=== PATIENT | male | born 1940 | race Caucasian/White ===

== ENCOUNTER 2021-08-16 01:25 | Outpatient (CLI) | payer MEDICARE, BC, SELFPAY ==
--- NOTE | 2021-08-16 14:55 | DI.US_ITS ---
APPROVED REPORT EXAM: Comprehensive 2D, Doppler, and color-flow Echocardiogram Patient Location: Out-Patient Electrical Engineering Intern: Pat Hernández RDCS (AE) Indications: Systolic Murmur Other Information Study Quality: Adequate Conclusion Normal left ventricular wall thickness and chamber size. Estimated ejection fraction is 60%. Wall m otion is normal Right ventricle was not well visualized Moderately dilated left atrium The aortic valve is sclerotic. Number of leaflets could not be accurately determined. There is mild aortic stenosis with a peak gradient of 24 mmHg, mean 14 mmHg and a calculated aortic valve area of 1.19 cm??. Trace aortic regurgitation Normal mitral valve with trace to mild regurgitation Normal tricuspid valve with trace regurgitation. Estimated right ventricular systolic pressure is 23 mmHg Mildly dilated ascending aorta measuring 3.55 cm Wall motion Left Ventricle The left ventricle is normal size. The left ventricular systolic function is normal. The left ventric ular ejection fraction is within the normal range. There is normal left ventricular wall thickness. T here is normal LV segmental wall motion. There is no ventricular septal defect visualized. LVEF is 60 %. Right Ventricle Right ventricle is not well visualized. Right ventricular systolic function could not be assessed. Th e RVSP is 23.5 mmHg. Atria Left atrium is moderately dilated. The right atrium size is normal. The interatrial septum is intact with no evidence for an atrial septal defect. Aortic Valve Aortic valve is calcified. Number of aortic valve leaflets could not be assessed. Peak gradient is 24 .0.mmHg. Highest mean aortic valve gradient is 14.1mmHg Calculated BECKY by the continuity equation is 1.19cm2. Trace aortic regurgitation. Mitral Valve The mitral valve is normal in structure. No evidence of mitral valve stenosis. Trace to mild mitral r egurgitation. Tricuspid Valve The tricuspid valve is normal in structure. There is no tricuspid valve stenosis. Trace tricuspid reg urgitation. Pulmonic Valve The pulmonary valve is normal in structure. There is no pulmonic valvular stenosis. Mild pulmonic reg urgitation. Great Vessels The aortic root is normal in size. The ascending aorta is mildly dilated3.55 cm. Aortic arch is not w ell visualized. IVC is normal in size and collapses >50% with inspiration. Pericardium There is no pericardial effusion. 2D Dimensions IVSD d PLAX 1.03 cm M: 0.6-1.2 LV Vol A2C d MOD 108.0 mL LVPW d PLAX 1.01 cm M: 0.6 - 1.2 LV Vol A4C d MOD 105.5 mL LVID d PLAX 4.49 cm M: 4.2 - 5.8 LA vol/ BSA A2C s A-L 47.5 mL/m2 LVDs 3.00 cm M: 2.5 - 4.0 LA vol/ BSA A4C s A-L 35.3 mL/m2 Ao Root d 3.53 cm M: 3.1 - 3.7 LA Vol/ BSA Biplane s A-L 41.3 mL/m2 Ao Asc Diam d 3.55 cm M: 2.6 - 3.4 LA Area A4C s MOD 19.97 cm2 LV EF Teichholz 60.6 % LA Area A2C s MOD 23.34 cm2 LVEF (Otoole's) 62.90 % M: 52 - 72 LV EF A4C MOD 60.6 % LV Volume 90.49 mL M: 62 - 150 LV EF A2C MOD 60.8 % LV Volume Index 54.18 mL/m2 M: 34 - 74 LV EF Biplane MOD 62.9 % LV Vol Biplane MOD 113.4 mL SV 71.31 mL FS 32.25 % SV Index 42.53 mL/m2 M-Mode TAPSE 1.86 cm (M/F) >1.7 LV Diastology MV E' medial 0.039 (>0.07 m/s) E/A Ratio 0.8 LV E/e MED 13.55 (<14) MV E Vmax 0.53 (0.4-1.3 m/s) MV E' lateral 0.064 (>0.1 m/s) MV A Vmax 0.65 (0.4-1.3 m/s) LV E/e LAT 8.35 (<14) MV E/A Ratio 0.76 MV E/E' medial 13.57 MV E/E' lateral 8.35 Aortic Valve LVOT Area 3.77 cm2 AoV Area Vmax 1.19 cm2 LVOT Vmax 0.78 m/s AoV Area/ BSA (Vmax) 0.71 cm2/m2 LVOT Mean Alfredo. 0.50 m/s BECKY Mean Alfredo. 1.06 cm2 LVOT Peak Grad 2.4 mmHg BECKY Mean Alfredo. Index 0.63 cm2/m2 LVOT Mean Grad 1.2 mmHg LVOT VTI 0.185 m LVOT Diam s 2.15 cm AoV Vmax 2.45 m/s Velocity Ratio 0.31 AoV Mean Alfredo. 1.79 m/s AoV Peak Grad 24.0 mmHg LVOT SV 69.98 mL AoV Mean Grad 14.1 mmHg AoV VTI 0.615 m AoV Area VTI 1.14 cm2 AoV Area/ BSA (VTI) 0.68 cm/m2 Mitral Valve MV DT 238 (160-240 msec) MV PHT 69 msec MV Area PHT 3.18 cm2 MV VTI 0.222 m MV Area VTI 3.15 (4.0-6.0 cm2) Pulmonary Valve PV Vmax 1.14 (0.5-1.5 m/s) RVOT Peak Gr. 1.70 mmHg PV Peak Grad 5.2 mmHg RVOT Mean Gr. 1.00 mmHg PV Mean Grad 2.9 mmHg RVOT VTI 0.155 m PV VTI 0.264 m RVOT Vmax 0.65 m/s Tricuspid Valve TR Peak Grad 20.4 mmHg TR Vmax 2.26 m/s RA Pressure 3.00 mmHg RVSP (TR) 23.5 mmHg
== END 2021-08-16 01:45 ==
PROVIDERS: PCP Nurse Practitioner Family; Visit Provider Nurse Practitioner Family
DX: R01.1 Cardiac murmur, unspecified (principal); I08.0 Rheumatic disorders of both mitral and aortic valves; I77.810 Thoracic aortic ectasia
CPT/HCPCS: 93306

== ENCOUNTER 2021-08-24 13:50 | Outpatient (CLI) | payer MEDICARE, BC, SELFPAY ==
--- NOTE | 2021-08-24 13:45 | RT.EKG_ITS ---
APPROVED REPORT Exam: Resting ECG Reason for Exam: New Patient [facility] Patient Location: O HR:60 bpm ECG Measurements Heart Rate 60 AXIS UT 304 P 89 QRSd 94 QRS 31 QT 417 T 64 QTc 417 Conclusion Sinus rhythm...normal P axis, V-rate 50- 99 Prolonged UT interval...UT >220, V-rate 50- 90 Left atrial enlargement...P, P'>60mS, <-0.15mV V1 left ventricular hypertrophy...multiple LVH criteria
== END 2021-08-24 13:51 | disposition home or self-care (01) ==
LOC: DI.CARD 13:53
PROVIDERS: PCP Nurse Practitioner Family; Referring Provider Nurse Practitioner Family; Visit Provider Internal Medicine Cardiovascular Disease
DX: R01.1 Cardiac murmur, unspecified (principal)
CPT/HCPCS: 93010

== ENCOUNTER → 2021-08-24 13:50 | Outpatient (BNVA) | payer MEDICARE, BC, SELFPAY | PROVIDERS: PCP Nurse Practitioner Family; Referring Provider Nurse Practitioner Family; Visit Provider Internal Medicine Cardiovascular Disease | DX: I35.0 Nonrheumatic aortic (valve) stenosis (principal); G20 Parkinson's disease; R01.1 Cardiac murmur, unspecified | CPT/HCPCS: 93005; 99203 ==

== ENCOUNTER 2021-09-05 00:13 | Outpatient (CLI) | payer MEDICARE, BC, SELFPAY ==
--- NOTE | 2021-09-05 17:00 | DI.DEXA_ITS ---
Exam(s) XR DEXA BONE DENSITY W/WO KENIA EXAM: XR DEXA BONE DENSITY W/WO KENIA CLINICAL HISTORY: OSTEOPOROSIS M81.0 TECHNIQUE: Routine DEXA evaluation of the lumbar spine, hip, or forearm. COMPARISON: No exams were available for comparison FINDINGS: Performed on a Hologic unit. Lateral image: L3 compression fracture noted. Lumbar Spine total T-score: Not able to be scanned Hip total T-score:-1.3 Independent reading at the level of the femoral neck yields at T-score of -2.1. Forearm total T-score: -0.7 IMPRESSION: Bone mineral density measures in the osteopenia range. Fracture risk is moderate. Note: Any spine fracture indicates 5x risk for subsequent spine fracture and 2x risk for subsequent h ip fracture. World Health Organization criteria for BMD interpretation classify patients: Normal...... T- Score at or above -1.0 Osteopenic... T- Score between -1.0 and -2.5 Osteoporosis... T-Score at or below -2.5
== END 2021-09-05 00:33 ==
PROVIDERS: PCP Nurse Practitioner Family; Visit Provider Nurse Practitioner Family
DX: Z13.820 Encounter for screening for osteoporosis (principal); M85.89 Other specified disorders of bone density and structure, multiple sites
CPT/HCPCS: 77080

== ENCOUNTER 2021-09-10 15:15 | Outpatient (CLI) | payer MEDICARE, BC, SELFPAY ==
--- NOTE | 2021-09-10 15:00 | DI.RAD_ITS ---
Exam(s) XR KNEE RT 3V AP,LAT,HARPREET EXAM: XR KNEE RT 3V AP,LAT,HARPREET INDICATION: R TKA pain. COMPARISON: No exams were available for comparison TECHNIQUE: 2D digital imaging was performed. FINDINGS: There has been no change in the alignment of the total knee prosthesis or appearance of the surroundi ng bone. Vascular calcifications are noted. A joint effusion appears unchanged. DATA REPOSITORY: RADIATION DOSE DELIVERED:
--- NOTE | 2021-09-10 15:15 | DI.RAD_ITS ---
Exam(s) XR HIP RT COMPLETE AP PELVIS EXAM: XR HIP RT COMPLETE AP PELVIS INDICATION: hip/knee pain. COMPARISON: CR XR DEXA BONE DENSITY W/WO KENIA from 09/05/2021 TECHNIQUE: 2D digital imaging was performed. FINDINGS: Hip joint spaces are well maintained. Minimal acetabular spurring. Vascular calcifications. Mild d egenerative changes of the SI joints. DATA REPOSITORY: RADIATION DOSE DELIVERED:
[2021-09-10 17:33] LABS: Clarity Cloudy; Nucleated Cells 5558 uL (0)
[2021-09-10 17:34] LABS: Mononuclear Cells 32 %; Polynuclear Cells 68 %
== END 2021-09-10 15:16 | disposition home or self-care (01) ==
PROVIDERS: PCP Nurse Practitioner Family; Referring Provider Nurse Practitioner Family; Visit Provider Student in an Organized Health Care Education/Training Program
DX: T84.84XA Pain due to internal orthopedic prosthetic devices, implants and grafts, initial encounter; Z96.651 Presence of right artificial knee joint; M25.561 Pain in right knee; M25.551 Pain in right hip; G20 Parkinson's disease
CPT/HCPCS: 20610; 73562; 99213; 73502; 87070; 87205; 89051

== ENCOUNTER → 2021-09-17 14:48 | Outpatient (BNVA) | payer MEDICARE, BC, SELFPAY | PROVIDERS: PCP Nurse Practitioner Family; Referring Provider Nurse Practitioner Family; Visit Provider Surgery | DX: K40.30 Unilateral inguinal hernia, with obstruction, without gangrene, not specified as recurrent (principal); G20 Parkinson's disease; I10 Essential (primary) hypertension | CPT/HCPCS: 36415; 99214; 99243 ==

== ENCOUNTER 2021-09-17 16:05 | Outpatient (REF) | payer MEDICARE, BC, SELFPAY ==
[2021-09-17 15:43] LABS: Source Nasal/Nares
[2021-09-17 16:03] LABS: Abs Immature Grans 0.01 10^3/uL (0.0-0.06); Absolute Basophil Count 0.05 10^3/uL (0.0-0.2); Absolute Eosinophil Count 0.08 10^3/uL (0.0-0.7); Absolute Lymphocyte Count 6.69 10^3/uL (1.2-3.4); Absolute Monocyte Count 0.54 10^3/uL (0.1-0.8); Absolute Neutrophil Count 3.62 10^3/uL (1.2-6.7); Basophils % 0.5; Eosinophils % 0.7; HCT 39.1 % (40.0-50.0); HGB 12.4 g/dL (13.5-17.5); Immature Grans % 0.1; Lymphocytes % 60.9; MCH 29.7 pg (27.0-33.0); MCHC 31.7 % (32.0-36.0); MCV 93.8 fL (80-95); MPV 9.8 fL (8.0-11.0); Monocytes % 4.9; Neutrophils % 32.9; Nucleated RBC 0 %; Platelet Count 230 10^3/uL (130-400); RBC 4.17 10^6/uL (4.36-5.78); RDW 13.9 % (11.8-14.1); RDW-SD 47.5 fL; WBC 10.99 10^3/uL (4.4-10.8)
[2021-09-17 16:25] LABS: Diff Comment Agrees w/ Instrument; RBC Morphology Normal
[2021-09-17 16:30] LABS: ALT 18 U/L (16-63); AST 16 U/L (15-37); Albumin 3.5 g/dL (3.4-5.0); Alkaline Phosphatase 99 U/L (46-116); Anion Gap 4.8 mmol/L (3-11); BUN 25 mg/dL (7-18); Bilirubin, Total 0.8 mg/dL (0.2-1.0); CO2 32.2 mmol/L (21.0-32.0); CREATININE 0.9 mg/dL (0.70-1.30); Calcium 8.7 mg/dL (8.5-10.1); Chloride 104 mmol/L (98-107); Glucose 88 mg/dL (74-106); Potassium 4.5 mmol/L (3.5-5.1); Sodium 141 mmol/L (136-145); Total Protein 7.1 g/dL (6.4-8.2)
[2021-09-18 08:27] LABS: COVID-19 PCR Negative (Negative)
== END 2021-09-17 16:06 | disposition home or self-care (01) ==
LOC: LBN 16:05
PROVIDERS: PCP Nurse Practitioner Family; Visit Provider Surgery
DX: Z20.822 Contact with and (suspected) exposure to COVID-19; K40.90 Unilateral inguinal hernia, without obstruction or gangrene, not specified as recurrent; G20 Parkinson's disease; I35.0 Nonrheumatic aortic (valve) stenosis; M81.0 Age-related osteoporosis without current pathological fracture; T84.84XA Pain due to internal orthopedic prosthetic devices, implants and grafts, initial encounter
CPT/HCPCS: 80053; 87635; 85025

== ENCOUNTER 2021-09-18 06:44 | Observation (INO) | payer MEDICARE, BC, SELFPAY ==
[2021-09-18] VITALS (18 sets, daily range): BP systolic 60–117; BP diastolic 32–75; PULSE 54–88; RESP 10–21; TEMP 36–36.9; O2SAT 93–98; BMI 25.6
--- NOTE | 2021-09-18 07:58 | W.ANESPRE ---
General Info Date of Service Date Performed: 09/18/21 Height: 5 ft 5 in Weight: 69.8 kg Body Mass Index (BMI): 25.6 Surgical Procedure: Operation Date: 09/18/21 08:25 Proposed Procedures Side Surgeon p Herniorrhaphy Inguinal Incarcerated Lizette Humphreys, Meds Allergies and Home Medications Allergies Allergy/AdvReac Type Severity Reaction Status Date / Time No Known Allergies Allergy Verified 09/18/21 07:30 Home Medication Medication Instructions Recorded alendronate 70 mg tablet 70 mg PO QWEEK 07/06/21 aspirin 81 mg tablet,delayed 81 mg PO DAILY 07/06/21 release calcium citrate malate 250 1 tab PO DAILY tab 07/06/21 mg-vitamin D3 2.5 mcg (100 unit) tablet carbidopa 25 mg-levodopa 100 mg 1 tab PO TID 07/06/21 tablet multivitamin 1 tab PO DAILY 07/06/21 ramipril 2.5 mg capsule 2.5 mg PO DAILY 07/06/21 simvastatin 20 mg tablet 20 mg PO DAILY 07/06/21 Current Visit Medications: Current Medications Generic Name Dose Route Start Last Admin Trade Name Freq PRN Reason Stop Dose Admin Acetaminophen 1,000 mg 09/18/21 19:56 Acetaminophen 500 Mg Tab PO 09/18/21 19:57 SUBSTITUTE NURSE ONE Gabapentin 300 mg 09/18/21 07:00 Gabapentin 300 Mg Cap PO SUBSTITUTE NURSE [place] Sodium Chloride 500 mls @ 0 mls/hr 09/17/21 21:54 Saline 500ml Bag IV PRN PRN As Directed Piperacillin Sod/Tazobactam 50 mls @ 100 mls/hr 09/18/21 07:54 Sod 3.375 gm/ Sodium Chloride IVPB 09/18/21 08:23 SUBSTITUTE NURSE ONE Protocol Ringer's Solution 1,000 mls @ 80 mls/hr 09/17/21 22:00 IV INFUSION [place] Ondansetron HCl 4 mg/ Sodium 52 mls @ 200 mls/hr 09/17/21 21:59 Chloride IVPB Q6H PRN PRN IV Miscellaneous Supplies 1 each 09/17/21 22:00 Iv Access IV DIRECTED [place] Morphine Sulfate 2 mg 09/17/21 21:59 Morphine 4 Mg/Ml Syr IVP Q1H PRN PRN Sodium Chloride 0 ml 09/17/21 21:54 Normal Saline Flush 10 Ml Syr IVP PRN PRN PFSH Active Problems Active Problems: Problem Status Onset Code Knee pain, right M25.561 Dementia F03.90 Cough R05 Systolic murmur R01.1 Osteoporosis M81.0 Parkinsons disease G20 Inguinal hernia K40.90 Right inguinal hernia K40.90 Aortic stenosis I35.0 Painful total knee replacement, 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, Z96.651 Incarcerated right inguinal hernia K40.30 BPH (benign prostatic hyperplasia) N40.0 HTN (hypertension) I10 Elevated cholesterol E78.00 Medical History Active Problem List Knee pain, right (Acute) Dementia (Chronic) Cough (Acute) Systolic murmur (Acute) Osteoporosis (Chronic) Parkinsons disease (Chronic) Inguinal hernia (Acute) Right inguinal hernia (Acute) Aortic stenosis (Chronic) Painful total knee replacement, right (Acute) Incarcerated right inguinal hernia (Acute) BPH (benign prostatic hyperplasia) (Chronic) HTN (hypertension) (Chronic) Elevated cholesterol (Chronic) Surgical History Surgical History History of lumbar laminectomy multiple History of total right knee replacement (TKR) (~2019) Hx of hand surgery left Tobacco Smoking/Tobacco Use Status: Never Vital Signs and Lab Results Vital Signs Most Recent Vital Signs in EMR: Temp Pulse Resp BP Pulse Ox 36.9 C 70 16 117/70 95 09/18/21 07:35 09/18/21 07:35 09/18/21 07:35 09/18/21 07:35 09/18/21 07:35 Lab Results Blood Type / Crossmatch: No Data to Display Complete Blood Count: White Blood Count 10.99 10^3/uL (4.4-10.8) H 09/17/21 15:45 09/17/21 Red Blood Count 4.17 10^6/uL (4.36-5.78) L 09/17/21 15:45 09/17/21 Hemoglobin 12.4 g/dL (13.5-17.5) L 09/17/21 15:45 09/17/21 Hematocrit 39.1 % (40.0-50.0) L 09/17/21 15:45 09/17/21 Platelet Count 230 10^3/uL (130-400) 09/17/21 15:45 09/17/21 Complete Metabolic Panel: Sodium Level 141 mmol/L (136-145) 09/17/21 15:45 09/17/21 Potassium Level 4.5 mmol/L (3.5-5.1) 09/17/21 15:45 09/17/21 Chloride Level 104 mmol/L (98-107) 09/17/21 15:45 09/17/21 Carbon Dioxide Level 32.2 mmol/L (21.0-32.0) H 09/17/21 15:45 09/17/21 Blood Urea Nitrogen 25 mg/dL (7-18) H 09/17/21 15:45 09/17/21 Creatinine 0.9 mg/dL (0.70-1.30) 09/17/21 15:45 09/17/21 Estimated GFR/1.73 m2 >= 60.00 (mL/min/1.73m2) 09/17/21 15:45 09/17/21 Calcium Level 8.7 mg/dL (8.5-10.1) 09/17/21 15:45 09/17/21 Albumin 3.5 g/dL (3.4-5.0) 09/17/21 15:45 09/17/21 Glucose Level 88 mg/dL (74-106) 09/17/21 15:45 09/17/21 Liver Function Panel: Alanine Aminotransferase (ALT/SGPT) 18 U/L (16-63) 09/17/21 15:45 09/17/21 Aspartate Amino Transf (AST/SGOT) 16 U/L (15-37) 09/17/21 15:45 09/17/21 Coagulation Panel: No Data to Display Cardiac Panel: No Data to Display Arterial Blood Gas: No Data to Display Venous Blood Gas: No Data to Display Pancreas Panel: No Data to Display Thyroid Panel: No Data to Display Infectious Disease: Coronavirus (COVID-19)(PCR) Negative (Negative) 09/17/21 15:30 09/17/21 Coronavirus 2019 Source Nasal/Nares 09/17/21 15:30 09/17/21 Blood Cultures: No Data to Display Toxicology Panel: No Data to Display Imaging and Studies Imaging and Studies EKG Summary: 08/24/21: Conclusion Sinus rhythm...normal P axis, V-rate 50- 99 Prolonged IL interval...IL >220, V-rate 50- 90 Left atrial enlargement...P, P'>60mS, <-0.15mV V1 left ventricular hypertrophy...multiple LVH criteria Echocardiogram Summary: 08/16/21: Conclusion Normal left ventricular wall thickness and chamber size. Estimated ejection fraction is 60%. Wall motion is normal Right ventricle was not well visualized Moderately dilated left atrium The aortic valve is sclerotic. Number of leaflets could not be accurately determined. There is mild aortic stenosis with a peak gradient of 24 mmHg, mean 14 mmHg and a calculated aortic valve area of 1.19 cm??. Trace aortic regurgitation Normal mitral valve with trace to mild regurgitation Normal tricuspid valve with trace regurgitation. Estimated right ventricular systolic pressure is 23 mmHg Mildly dilated ascending aorta measuring 3.55 cm Anesthesia Assessment and Plan Anesthesia History Personal History: Delayed Emergence Family History: No Family History of Anesthesia Complications Exercise Tolerance Exercise Tolerance: Metabolic Equivalents>4 Pertinent Negatives Pertinent Negatives: No Symptoms of GERD, No Major Pulmonary Symptoms or Complaints and No History of CVA/TIA Cardiac & Pulmonary Exam Cardiac Exam: Normal S1/S2 Heart Sounds and Heart Murmur Present (Systolic) Pulmonary Exam: Clear Bilateral Breath Sounds Implantable Cardiac Device Does patient have a Pacemaker or an ICD?: No Airway Exam Known Difficult Airway: No Mallampati Class: 2 Mouth Opening: Normal (> 3cm) Thyromental Distance: Greater than 3 cm Neck Range of Motion: Full ROM Neck Circumference: Normal Teeth Condition: Removable Dentures/Plates Upper ASA Classification ASA Score: ASA 3 Emergency Case?: No NPO Status NPO Status: NPO Clears >2 hours, Solids >8 hours Anesthesia Plan Resuscitation Status: Full Code Anesthesia Technique: General Anesthesia Airway Planned: Endotracheal Tube Pain Management: Surgeon and patient request nerve block Monitors Used: Standard Monitors, Arterial Line and SedLine
[2021-09-18] MEDS: Acetaminophen 500 MG TAB 1000 MG PO ×2 (08:32→17:00)
[2021-09-18] MEDS: Tamsulosin 0.4 MG CAPCR PO (08:34)
[2021-09-18] MEDS: Lactated Ringers 1,000 ML 80 ML IV (08:34)
[2021-09-18] MEDS: Gabapentin 300 MG CAP PO (08:34)
--- NOTE | 2021-09-18 13:16 | LYM_PTH ---
PATIENT: Noam Whyte LOC: [place] Raza#:[id number] AGE/SX: 80/M ROOM: 212 RE09/18/[address]: Lizette Humphreys : 1940 BED: A DIS: 09/19/2021 SPEC #: [id number] RECD: 09/18/21 17:29 STATUS: MAKSIM REQ #: [id number] ASHUTOSH: 09/18/21 13:[address]: Lizette Humphreys DEPT: Surgical Specimen RECD BY: Beverley Naranjo ENTERED: 09/18/21 17:30 SP TYPE: LYM OTHR DR: Clemencia Hoover Tissues: 1 - LYMPH NODE BIOPSY Procedures: GROSS AND MICRO LEVEL 4 IMMUNOPEROXIDASE STAIN Comments: [id number]
[2021-09-18] MEDS: Bupivacaine 0.25% Pres-Free 30 ML VIAL (13:54)
[2021-09-18] MEDS: Bupivacaine LIPOSOME/PF 133 MG/10 ML VIAL IJ (14:14)
--- NOTE | 2021-09-18 14:21 | W.ANESNERVE ---
Nerve Block Single Injection Procedure Date and Time Date Performed: 09/18/21 Procedure Start: 14:13 Location Where Procedure Performed Procedure Location: Operating Room Procedure Stop: 14:20 Reason Performed: Postoperative Analgesia Requesting Provider: Petr Timeout Performed Timeout Performed: Yes Monitoring Used ECG, Blood Pressure, SpO2 and ETCO2 Sterility Sterility: Hand Hygiene, Surgical Cap, Surgical Mask, Sterile Gloves, Sterile Drape/Sheet, Eye Protection and Chlorhexidine Sedation Given During Procedure Sedation Given (Indicate Dose Given): No Sedation given Patient Mental Status Patient Mental Status: Performed under general anesthesia Nerve Block 1st Nerve Block: Laterality: Right Block Type: TAP Bilateral Needle / Catheter Used: 100mm SonoPlex II Local Anesthetic Bolus (Indicate Dose Given): Injected in 3-5ml increments after negative blood aspiration, Bupivacaine 0.25% Dose:: 20 mL and Exparel Dose:: 10 mL Additives (Indicate Dose Given): None Ultrasound: Sterile probe cover and gel used Ultrasound Image Saved?: Yes Nerve Stimulator: Not Used Paresthesia: None Procedure Tolerated: No Complications Procedure Outcome: Successful Performed By: Zabrina
[2021-09-18] MEDS: ePHEDrine 50 MG/ML VIAL IVP ×4 (15:02→15:52)
--- NOTE | 2021-09-18 15:07 | W.PM.OP ---
Date of service: 09/18/21 Time of Service: 15:07 Operative Note Operative Note DATE OF PROCEDURE: 09/18/21 PRE-OP DIAGNOSIS: incarcerated right inguinal hernia w/ bowel POST-OP DIAGNOSIS: same PROCEDURE: open repair w/ mesh SURGEON: Lizette Osborne DAIRY SCIENCE TEACHER: Sugey Gonzalez ANESTHESIA TYPE: Local By Surgeon, General LMA/ETT and Primary Nerve Block Refer to Anesthesia Record ESTIMATED BLOOD LOSS: 10 PATHOLOGY: none sent COMPLICATIONS: None Patient was transported to: PACU Patient's condition: stable Implants: see RN notes for lot # Indications: incarceration Procedure Description: INDICATIONS: Pt has a large right inguinal hernia that contains bowel that I could not reduce. Pt said he didn't have any pain- but he has advanced dementia and exam is unreliable. Informed consent was obtained, explaining risks and benefits of the procedure including but not limited to bleeding, infection, pneumonia, blood clots, chronic pain, chronic numbness, damage to testicle resulting in removal, recurrence of hernia, reaction to Mesh necessitating removal, and other unforetold complications, and complications of anesthesia-which were addressed by the RESEARCH PHLEBOTOMIST. The patient is marked in preOp prior to the procedure DESCRIPTION OF PROCEDURE: The pt is then brought to the operative room suite. Anesthesia was administered per the Department of Anesthesia. A nerve block was performed by anesthesia under US guidance. The patient was prepped and draped in the usual sterile fashion using ChloraPrep scrub solution. Pause for the cause was done. He did receive preop IV antibiotics, and 30 mL of .25% Marcaine w/ epinephrine was used for local anesthetization. A #12 blade was used to make an incision over the external ring. Electrocautery used to provide hemostasis and dissect down to the fascia. The fascia was pretty much obliterated and there was nothing to open. The cord is elevated. The nerve was not identified. There is no cord lipomas. Electro-cautery is used to provide hemostasis. A [place] drain was placed around the cord to assist in mobilization. The cord was explored. There was is 4 inch hernia sac on the cord. There is no direct hernia pushing through the floor. The hernia sac is dissected off the cord using a combination of blunt dissection and electrocautery. Electrocautery is used to provide hemostasis. There are no contents within the hernia sac. High ligation of the sac is performed; the sack is tied off w/ 0 vicryl, and returned to the abdominal cavity. A XL size plug is than inserted into the defect through the internal ring, and over sewn to tighten up the ring with 2-0 vicryl. Please see RN notes from Lot number of the Bard mesh patch/plug. The cord structures are still able to freely move through the ring itself. The patch was then placed onto the floor, and using 2-0 Vicryl, sewn into the pubic tubercle and the shelving portions of the inguinal ligament, in the standard Lichenstein fashion. The tails of the mesh are brought around the cord, sewn together w/ 2-0 Vicryl, and tucked under the external oblique. The wound was copiously irrigated. There was no bleeding noted. The drain was removed. All structures are returned to normal anatomical position. The nerve is not sewn into the mesh, nor caught up in any sutures. The external oblique is re-approximated using 2-0 vicryl in a running fashion. Deep tissue was approximated with 3-0 Vicryl in a running fashion, and skin was approximated with 4-0 Monocryl in a running subcuticular fashion. Skin glue and sterile dressings are applied. The patient tolerated the procedure without complications to recovery in stable condition. LIZETTE OSBORNE, DO
--- NOTE | 2021-09-18 15:49 | DSE_ITS ---
Documented by User: Lizette Humphreys DO 09/21/21 16:34 Date of service: 09/18/21 Time of Service: 15:49 DS: Diagnosis Discharge Diagnosis (1) Incarcerated right inguinal hernia: Status: Acute (2) BPH (benign prostatic hyperplasia): Status: Chronic (3) HTN (hypertension): Status: Chronic (4) Elevated cholesterol: Status: Chronic (5) Aortic stenosis: Status: Chronic (6) Parkinsons disease: Status: Chronic (7) Osteoporosis: Status: Chronic (8) Dementia: Status: Chronic (9) Knee pain, right: Status: Acute Discharge Plan Disposition Patient Disposition: HOME Condition: Good Discharge Details Reason For Visit: INCARCERATED HERNIA Admit Date/Time: 09/18/21 06:44 Admit Provider: Lizette Humphreys Attending Provider: Lizette Humphreys Primary Care Provider: Clem[facility] Hospital Course Hospital Course: 80 y/o male with a history of aortic stenosis, parkinsons disease and HTN was admitted overnight for observation following open right incarcerated inguinal hernia repair with mesh. Patient had very good pain control over night, tolerated regular diet and was urinating without difficulty. Patient is eager to return home. Patient will be d/c home with services for PT. Patient is in agreement with this plan. He will follow up in the office with Dr. Humphreys in 2 weeks. Home Meds and New Rx's Prescriptions: New tramadol 50 mg tablet 50 mg PO Q6H PRNQty: 10 RF: 0 tamsulosin [Flomax] 0.4 mg capsule 0.4 mg PO DAILY Qty: 30 RF: 0 gabapentin 100 mg capsule 100 mg PO QHS Qty: 30 RF: 0 Continued alendronate [Fosamax] 70 mg tablet 70 mg PO QWEEK RF: 0 carbidopa-levodopa 25-100 mg tablet 1 tab PO TID RF: 0 calcium citrate malate-vit D3 250 mg-2.5 mcg (100 unit) tablet 1 tab PO DAILY RF: 0 simvastatin 20 mg tablet 20 mg PO DAILY RF: 0 aspirin [Adult Aspirin Regimen] 81 mg tablet,delayed release (DR/EC) 81 mg PO DAILY RF: 0 ramipril 2.5 mg capsule 2.5 mg PO DAILY RF: 0 multivitamin Tablet 1 tab PO DAILY RF: 0 Discharge Instructions Additional Instructions: Dr. Stoiber HERNIA REPAIR ? POSTOPERATIVE INSTRUCTIONS Patients who have this type of surgery can usually be expected to return to work within two weeks and have minimal amounts of discomfort. ? ACTIVITY: The day of surgery should be spent resting. However, you can be up for short periods of time, I.E., going to the bathroom or kitchen. Avoid lifting or straining. On the day following surgery, you can be up and about as desired. ? LIFTING: Restrict your lifting to no more than five (5) pounds for the first week following surgery. For the second week after surgery, don?t lift more than ten pounds. We will decide when you are done with restrictions and when you can return to work, at your follow-up appointment. No sexual activity for two weeks. ? DIET: There are no dietary restrictions following surgery. However, you may want to start with small amounts of liquids to avoid nausea the day of surgery. ? INCISION CARE: You will notice purple skin glue closing the incision. Do not peel this off- it will wear off on its own. After 24 hours you may shower. The dressing may be replaced for comfort, but is not necessary. An ice bag may be applied to the incision for 72 hours following surgery. ? SIGNS OF INFECTION: It is not unusual to have some black and blue discoloration of the skin around the incision, but also scrotum and penis. It will slowly disappear. If you have any increased redness, drainage, fever (above 100 degrees), please contact your doctor for an examination. ? DISCOMFORT: You may expect to have some mild discomfort at the incision sight. If severe pain develops you should contact your doctor for further instructions. ? URINATION: Patients who have surgery occasionally have problems urinating. If you experience problems and are not able to urinate within 6 hours following your surgery, please call your doctor immediately or go to your nearest Emergency Room for evaluation. ? DRIVING: NO driving for three (3) days after surgery, or if you are still taking narcotic pain medication. ? MEDICATIONS: Alternate Tylenol 1000mg by mouth every 8 hours and Ibuprofen 600mg every 6 hours. Make sure you take ibuprofen with food and not on an empty stomach. Take the Tylenol and ibuprofen continuously for the first 72hrs- not j ust when you have pain. Use the tramadol for breakthrough pain. Use ICE! Twenty minutes on, and then off, continuously for the first 72hours. If you are taking narcotic pain medication, follow the instructions on the label and do not drive. Pain medications can make you very constipated. Make sure you are moving your bowels daily. If not, take Miralax, milk of magnesia or magnesium citrate. Anesthesia makes you very constipated. Take a dose of milk of magnesia the morning after surgery. ? REPORT: Unusual swelling, severe pain, unresolved nausea, signs of infection, or difficulty in urination to your surgeon. -use walker as needed for balance -Home PT will start or Friday Follow up in clinic with Dr. Humphreys in 2 weeks. [phone] Stand Alone Forms: Nursing Discharge Form Referrals: Lizette Humphreys DO [OSTEOPATHIC DOCTOR] - 09/27/21 3:00 pm Activity:: see above Equipment/Supplies:: Walker Diet:: Normal Diet Discharge Orders Discharge Orders: Discharge Order (Routine); Ordered 09/19/21 Ordered By: Susanne Eng Discharge Data Discharge Date/Time-TO BE ENTERED AT DEPARTURE: 09/19/21 13:07 DS: Data Vitals/I&O Vitals and I&O: Vital Signs Temperature 36.4 C L 09/18/21 15:35 Pulse 55 L 09/18/21 15:35 Pulse Rhythm Regular 09/18/21 07:35 Respiratory Rate 11 L 09/18/21 15:35 Respiratory Effort 09/18/21 07:35 Respiratory Depth Normal 09/18/21 07:35 Respiratory Pattern Normal 09/18/21 07:35 Blood Pressure 109/39 L 09/18/21 15:35 Pulse Oximetry 98 09/18/21 15:35 Oxygen Delivery Method Nasal Cannula 09/18/21 15:35 Oxygen Flow Rate 2 09/18/21 15:35 Pain Level 0 09/18/21 15:35 Intake & Output 09/17/21 09/18/21 09/18/21 23:59 11:59 23:59 Intake Total 450 / 450 Balance 450 / 450 Weight 69.8 kg Intake: IV 450 / 450 Other: Urine Appearance Clear Emesis Description None [facility] Active Problem List (Updated 09/18/21 @ 15:51 by Lizette Humphreys DO) S/P right inguinal hernia repair (Acute) Knee pain, right (Acute) Dementia (Chronic) Cough (Acute) Systolic murmur (Acute) Osteoporosis (Chronic) Parkinsons disease (Chronic) Aortic stenosis (Chronic) Painful total knee replacement, right (Acute) Incarcerated right inguinal hernia (Acute) BPH (benign prostatic hyperplasia) (Chronic) HTN (hypertension) (Chronic) Elevated cholesterol (Chronic) Surgical History (Updated 09/18/21 @ 22:20 by Lizette Humphreys, DO) History of lumbar laminectomy multiple History of total right knee replacement (TKR) (~2019) Hx of hand surgery left Social History Smoking/Tobacco Use Status: Never Smoking risk assessment performed?: Yes Alcohol Intake: current Alcohol Intake frequency: 0-2 drinks per day Alcohol type: wine Drug use: Daily Substance use type: does not use Additional Social history: unable to assess privately Documented by User: MURPHY Ayala 09/19/21 07:26 Date of service: 09/19/21 Time of Service: 07:22 Discharge Plan Disposition Patient Disposition: HOME Condition: Good Discharge Details Reason For Visit: INCARCERATED HERNIA Admit Date/Time: 09/18/21 06:44 Admit Provider: Lizette Humphreys Attending Provider: Lizette Humphreys [facility] Hospital Course: 80 y/o male with a history of aortic stenosis, parkinsons disease and HTN was admitted overnight for observation following open right incarcerated inguinal hernia repair with mesh. Patient had very good pain control over night, tolerated regular diet and was urinating without difficulty. Patient is eager to return home. Patient will be d/c home with services for PT. Patient is in agreement with this plan. He will follow up in the office with Dr. Humphreys in 2 weeks. Home Meds and New Rx's Prescriptions: New tramadol 50 mg tablet 50 mg PO Q6H PRNQty: 10 RF: 0 tamsulosin [Flomax] 0.4 mg capsule 0.4 mg PO DAILY Qty: 30 RF: 0 gabapentin 100 mg capsule 100 mg PO QHS Qty: 30 RF: 0 Continued alendronate [Fosamax] 70 mg tablet 70 mg PO QWEEK RF: 0 carbidopa-levodopa 25-100 mg tablet 1 tab PO TID RF: 0 calcium citrate malate-vit D3 250 mg-2.5 mcg (100 unit) tablet 1 tab PO DAILY RF: 0 simvastatin 20 mg tablet 20 mg PO DAILY RF: 0 aspirin [Adult Aspirin Regimen] 81 mg tablet,delayed release (DR/EC) 81 mg PO DAILY RF: 0 ramipril 2.5 mg capsule 2.5 mg PO DAILY RF: 0 multivitamin Tablet 1 tab PO DAILY RF: 0 Discharge Instructions Additional Instructions: Dr. Humphreys HERNIA REPAIR ? POSTOPERATIVE INSTRUCTIONS Patients who have this type of surgery can usually be expected to return to work within two weeks and have minimal amounts of discomfort. ? ACTIVITY: The day of surgery should be spent resting. However, you can be up for short periods of time, I.E., going to the bathroom or kitchen. Avoid lifting or straining. On the day following surgery, you can be up and about as desired. ? LIFTING: Restrict your lifting to no more than five (5) pounds for the first week following surgery. For the second week after surgery, don?t lift more than ten pounds. We will decide when you are done with restrictions and when you can return to work, at your follow-up appointment. No sexual activity for two weeks. ? DIET: There are no dietary restrictions following surgery. However, you may want to start with small amounts of liquids to avoid nausea the day of surgery. ? INCISION CARE: You will notice purple skin glue closing the incision. Do not peel this off- it will wear off on its own. After 24 hours you may shower. The dressing may be replaced for comfort, but is not necessary. An ice bag may be applied to the incision for 72 hours following surgery. ? SIGNS OF INFECTION: It is not unusual to have some black and blue discoloration of the skin around the incision, but also scrotum and penis. It will slowly disappear. If you have any increased redness, drainage, fever (above 100 degrees), please contact your doctor for an examination. ? DISCOMFORT: You may expect to have some mild discomfort at the incision sight. If severe pain develops you should contact your doctor for further instructions. ? URINATION: Patients who have surgery occasionally have problems urinating. If you experience problems and are not able to urinate within 6 hours following your surgery, please call your doctor immediately or go to your nearest Emergency Room for evaluation. ? DRIVING: NO driving for three (3) days after surgery, or if you are still taking narcotic pain medication. ? MEDICATIONS: Alternate Tylenol 1000mg by mouth every 8 hours and Ibuprofen 600mg every 6 hours. Make sure you take ibuprofen with food and not on an empty stomach. Take the Tylenol and ibuprofen continuously for the first 72hrs- not just when you have pain. Use the tramadol for breakthrough pain. Use ICE! Twenty minutes on, and then off, continuously for the first 72hours. If you are taking narcotic pain medication, follow the instructions on the label and do not drive. Pain medications can make you very constipated. Make sure you are moving your bowels daily. If not, take Miralax, milk of magnesia or magnesium citrate. Anesthesia makes you very constipated. Take a dose of milk of magnesia the morning after surgery. ? REPORT: Unusual swelling, severe pain, unresolved nausea, signs of infection, or difficulty in urination to your surgeon. -use walker as needed for balance -Home PT will start or Friday Follow up in clinic with Dr. Humphreys in 2 weeks. [phone] Stand Alone Forms: Nursing Discharge Form Referrals: Lizette Humphreys DO [OSTEOPATHIC DOCTOR] - 09/27/21 3:00 pm Activity:: see above Equipment/Supplies:: Walker Diet:: Normal Diet Discharge Orders Discharge Orders: Discharge Order (Routine); Ordered 09/19/21 Ordered By: Susanne Eng Discharge Data Discharge Date/Time-TO BE ENTERED AT DEPARTURE: 09/19/21 13:07 DS: Summary Time Spent with Patient providing and/or coordinating discharge services: Less than 30 minutes Status at Discharge Functional status at discharge: uses cane/walker Overall status at discharge: patient is back to baseline Mental Status: mental status grossly normal Speech and Movement: speech and movement normal Mood: congruent mood Affect: normal affect Exam Const General: cooperative, healthy appearing and comfortable Orientation: alert and oriented x3 Resp Effort & Inspection: normal respiratory effort, no audible wheezes and no cough GI Inspection: incision (Approximated with skin a fix ) Palpation: soft, no guarding and nontender Psych Mental Status: mental status grossly normal Speech and Movement: speech and movement normal Mood: congruent mood Affect: normal affect [facility] Active Problem List (Updated 09/18/21 @ 15:51 by Lizette Humphreys DO) S/P right inguinal hernia repair (Acute) Knee pain, right (Acute) Dementia (Chronic) Cough (Acute) Systolic murmur (Acute) Osteoporosis (Chronic) Parkinsons disease (Chronic) Aortic stenosis (Chronic) Painful total knee replacement, right (Acute) Incarcerated right inguinal hernia (Acute) BPH (benign prostatic hyperplasia) (Chronic) HTN (hypertension) (Chronic) Elevated cholesterol (Chronic) Surgical History (Updated 09/18/21 @ 22:20 by Lizette Humphreys DO) History of lumbar laminectomy multiple History of total right knee replacement (TKR) (~2019) Hx of hand surgery left Social History Smoking/Tobacco Use Status: Never Smoking risk assessment performed?: Yes Alcohol Intake: current Alcohol Intake frequency: 0-2 drinks per day Alcohol type: wine Drug use: Daily Substance use type: does not use Additional Social history: unable to assess privately Documented by User: Susanne Eng MD 09/19/21 10:23 Discharge Plan Disposition Patient Disposition: HOME Condition: Good Discharge Details Reason For Visit: INCARCERATED HERNIA Admit Date/Time: 09/18/21 06:44 Admit Provider: Lizette Humphreys Attending Provider: Lizette Humphreys Primary Care Provider: Clemencia [facility] Hospital Course Hospital Course: 80 y/o male with a history of aortic stenosis, parkinsons disease and HTN was admitted overnight for observation following open right incarcerated inguinal hernia repair with mesh. Patient had very good pain control over night, tolerated regular diet and was urinating without difficulty. Patient is eager to return home. Patient will be d/c home with services for PT. Patient is in agreement with this plan. He will follow up in the office with Dr. Humphreys in 2 weeks. Home Meds and New Rx's Prescriptions: New tramadol 50 mg tablet 50 mg PO Q6H PRNQty: 10 RF: 0 tamsulosin [Flomax] 0.4 mg capsule 0.4 mg PO DAILY Qty: 30 RF: 0 gabapentin 100 mg capsule 100 mg PO QHS Qty: 30 RF: 0 Continued alendronate [Fosamax] 70 mg tablet 70 mg PO QWEEK RF: 0 carbidopa-levodopa 25-100 mg tablet 1 tab PO TID RF: 0 calcium citrate malate-vit D3 250 mg-2.5 mcg (100 unit) tablet 1 tab PO DAILY RF: 0 simvastatin 20 mg tablet 20 mg PO DAILY RF: 0 aspirin [Adult Aspirin Regimen] 81 mg tablet,delayed release (DR/EC) 81 mg PO DAILY RF: 0 ramipril 2.5 mg capsule 2.5 mg PO DAILY RF: 0 multivitamin Tablet 1 tab PO DAILY RF: 0 Discharge Instructions Additional Instructions: Dr. Humphreys HERNIA REPAIR ? POSTOPERATIVE INSTRUCTIONS Patients who have this type of surgery can usually be expected to return to work within two weeks and have minimal amounts of discomfort. ? ACTIVITY: The day of surgery should be spent resting. However, you can be up for short periods of time, I.E., going to the bathroom or kitchen. Avoid lifting or straining. On the day following surgery, you can be up and about as desired. ? LIFTING: Restrict your lifting to no more than five (5) pounds for the first week following surgery. For the second week after surgery, don?t lift more than ten pounds. We will decide when you are done with restrictions and when you can return to work, at your follow-up appointment. No sexual activity for two weeks. ? DIET: There are no dietary restrictions following surgery. However, you may want to start with small amounts of liquids to avoid nausea the day of surgery. ? INCISION CARE: You will notice purple skin glue closing the incision. Do not peel this off- it will wear off on its own. After 24 hours you may shower. The dressing may be replaced for comfort, but is not necessary. An ice bag may be applied to the incision for 72 hours following surgery. ? SIGNS OF INFECTION: It is not unusual to have some black and blue discoloration of the skin around the incision, but also scrotum and penis. It will slowly disappear. If you have any increased redness, drainage, fever (above 100 degrees), please contact your doctor for an examination. ? DISCOMFORT: You may expect to have some mild discomfort at the incision sight. If severe pain develops you should contact your doctor for further instructions. ? URINATION: Patients who have surgery occasionally have problems urinating. If you experience problems and are not able to urinate within 6 hours following your surgery, please call your doctor immediately or go to your nearest Emergency Room for evaluation. ? DRIVING: NO driving for three (3) days after surgery, or if you are still taking narcotic pain medication. ? MEDICATIONS: Alternate Tylenol 1000mg by mouth every 8 hours and Ibuprofen 600mg every 6 hours. Make sure you take ibuprofen with food and not on an empty stomach. Take the Tylenol and ibuprofen continuously for the first 72hrs- not just when you have pain. Use the tramadol for breakthrough pain. Use ICE! Twenty minutes on, and then off, continuously for the first 72hours. If you are taking narcotic pain medication, follow the instructions on the label and do not drive. Pain medications can make you very constipated. Make sure you are moving your bowels daily. If not, take Miralax, milk of magnesia or magnesium citrate. Anesthesia makes you very constipated. Take a dose of milk of magnesia the morning after surgery. ? REPORT: Unusual swelling, severe pain, unresolved nausea, signs of infection, or difficulty in urination to your surgeon. -use walker as needed for balance -Home PT will start or Friday Follow up in clinic with Dr. Humphreys in 2 weeks. [phone] Stand Alone Forms: Nursing Discharge Form Referrals: Lizette Humphreys DO [OSTEOPATHIC DOCTOR] - 09/27/21 3:00 pm Activity:: see above Equipment/Supplies:: Walker Diet:: Normal Diet Discharge Orders Discharge Orders: Discharge Order (Routine); Ordered 09/19/21 Ordered By: Susanne Eng Discharge Data Discharge Date/Time-TO BE ENTERED AT DEPARTURE: 09/19/21 13:07 [facility] Active Problem List (Updated 09/18/21 @ 15:51 by Lizette Humphreys DO) S/P right inguinal hernia repair (Acute) Knee pain, right (Acute) Dementia (Chronic) Cough (Acute) Systolic murmur (Acute) Osteoporosis (Chronic) Parkinsons disease (Chronic) Aortic stenosis (Chronic) Painful total knee replacement, right (Acute) Incarcerated right inguinal hernia (Acute) BPH (benign prostatic hyperplasia) (Chronic) HTN (hypertension) (Chronic) Elevated cholesterol (Chronic) Surgical History (Updated 09/18/21 @ 22:20 by Lizette Humphreys DO) History of lumbar laminectomy multiple History of total right knee replacement (TKR) (~2019) Hx of hand surgery left Social History Smoking/Tobacco Use Status: Never Smoking risk assessment performed?: Yes Alcohol Intake: current Alcohol Intake frequency: 0-2 drinks per day Alcohol type: wine Drug use: Daily Substance use type: does not use Additional Social history: unable to assess privately
--- NOTE | 2021-09-18 15:58 | W.ANESPOSTOP ---
Postoperative Evaluation Date, Time and Location Date Performed: 09/18/21 Time Performed: 15:58 Patient Location: PACU Vital Signs Most Recent Imported Vital Signs: Most Recent Vital Signs Temp Pulse Resp BP Pulse Ox 36.4 C L 59 L 10 L 92/32 L 94 09/18/21 15:50 09/18/21 15:50 09/18/21 15:50 09/18/21 15:50 09/18/21 15:50 Pain Score Most Recent Pain Score: Most Recent Pain Score Pain Level 0 09/18/21 15:50 Assessment Mental Status: Arousable with meaningful communication Airway and Respiratory Function: Patent airway with normal (patient baseline) respiratory exam Cardiovascular Function: Hemodynamically Stable Hydration Status: Adequately Hydrated Nausea & Vomiting: No Nausea or Vomiting Pain: Pt. Denies Any Pain Peripheral Nerve Block: Regional nerve block not resolved at time of post operative discharge
[2021-09-18] MEDS: Carbidopa 25/Levodopa 100 TAB PO ×2 (17:01→19:49)
[2021-09-18] MEDS: Normal Saline 1,000 ML 75 ML IV (17:45)
[2021-09-18] MEDS: Normal Saline 1,000 ML 250 ML IV (18:17)
[2021-09-18] MEDS: Docusate Sodium 100 MG CAP PO (19:48)
--- NOTE | 2021-09-18 22:12 | W.PM.PROGNOT ---
Date of Service Date of service: 09/18/21 Time of Service: 16:00 Assessment and Plan Assessment and plan (1) S/P right inguinal hernia repair: Status: Acute Assessment and plan: The patient is doing well post-op. He denies any pain. He is alert and orientated to self. They are having no nausea or vomiting. The pt is not having any chest pain or SOB, productive cough; no calf pain or swelling. The pt is making good urine. The pt pain is adequately controlled. The case was discussed with nursing and patient?s progress reviewed. All of the pt's home medications were addressed and adjusted accordingly for their oral intact status. HEENT: no jaundice. no eye pain/drainage/redness/swelling. Mild sore throat Cardio- NSR no chest pain, BP stable. Pulm: no sob or productive cough. no hemoptysis Incision- clean/dry. Dressing intact no excessive bleeding or drainage I discussed with the patient and/or there family about the findings in surgery and the pt's progress. We reviewed expectations for progress in the hospital; what the pt could expect for recovery time and length of stay. We discussed the importance of walking and pulmonary toilet to avoid blood clots and pneumonia. Continue current plans for pulmonary toilet, GI and DVT prophylaxis. We shall continue the current plan for pain management as it is at an appropriate level, and working well for the pt. Appropriate measures will be taken for constipation prevention, and this was also reviewed with the pt. The wound care plan was reviewed with nursing as well. PT consulted pt will require home PT and walker. see orders I spoke w/ pt and appraised her of his condition/status. 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 Pt implant is poorly seated and loose. I did d/w Dr. Mathews. The only option would be surgical revision. Both of us agree that he is not a candidate for repeat surgery. Addendum pt had some postOp hypotension that resolved w/ 500cc fluid bolus. Pt was NPO for 12 hrs. Subjective Subjective Interval history since last seen: Objective Last Vital Signs Temp 36.4 C L 09/18/21 18:33 Pulse 64 09/18/21 18:50 Resp 18 09/18/21 18:33 BP 110/50 L 09/18/21 20:22 Pulse Ox 96 09/18/21 18:33
[2021-09-19 00:34] VITALS: PULSE 58
[2021-09-19] MEDS: traMADol 50 MG TAB PO (03:01)
[2021-09-19 03:09] VITALS: PULSE 63; O2SAT 93
[2021-09-19] MEDS: Normal Saline 1,000 ML 50 ML IV (04:01)
--- NOTE | 2021-09-19 07:16 | W.PM.PROGNOT ---
Date of Service Date of service: 09/19/21 Time of Service: 07:17 Assessment and Plan Assessment and plan (1) S/P right inguinal hernia repair: Status: Acute Assessment and plan: POD #1 s/p open right inguinal hernia repair with mesh. Patient denies having any pain at this time or through the night. Urinating without difficulty. Awaiting PT evaluation Incision site is intact and well approximated with skin a fix in place. Tolerating Regular diet. No fevers or chills. D/C home later today, with services. Subjective Subjective Patient reports: voiding w/o difficulty Interval history since last seen: Patient reports that he is feeling very well this morning and states that his pain is completely gone. Denies any fevers or chills over night. Exam Const General: cooperative, healthy appearing and comfortable Orientation: alert and oriented x3 Resp Effort & Inspection: normal respiratory effort, no audible wheezes and no cough GI Other: Incision site Right groin- Skin a fix in place. Mild ecchymosis and swelling. No induration or tenderness on exam Objective Last Vital Signs Temp 36.0 C L 09/18/21 22:45 Pulse 63 09/19/21 03:09 Resp 12 09/18/21 22:45 BP 114/67 09/18/21 22:45 Pulse Ox 93 09/19/21 03:09
[2021-09-19] MEDS: Acetaminophen 500 MG TAB 1000 MG PO (07:46)
[2021-09-19] MEDS: Carbidopa 25/Levodopa 100 TAB PO (07:49)
[2021-09-19] MEDS: Milk of Magnesia 30 ML CUP PO (07:50)
[2021-09-19] MEDS: Tamsulosin 0.4 MG CAPCR PO (07:50)
[2021-09-19] MEDS: Enoxaparin 40 MG/0.4 ML SYR SC (07:50)
[2021-09-19] MEDS: Docusate Sodium 100 MG CAP PO (07:50)
--- NOTE | 2021-09-19 09:02 | INITIAL_ITS ---
- If Service Date Differs Date of service: 09/19/21 Time of Service: 09:02 Care Management Initial Assess REASON FOR HOSPITALIZATION:: Inguinal hernia repair PAST MEDICAL HISTORY/PAST SURGICAL HISTORY:: Active Problem List (Updated 09/17/21 @ 21:08 by Lizette Humphreys DO). Elevated cholesterol (Chronic). HTN (hypertension) (Chronic). BPH (benign prostatic hyperplasia) (Chronic). Incarcerated right inguinal hernia (Acute). Right inguinal hernia (Acute). Painful total knee replacement, right (Acute). Aortic stenosis (Chronic). Inguinal hernia (Acute). Parkinsons disease (Chronic). Osteoporosis (Chronic). Systolic murmur (Acute). Cough (Acute). Dementia (Chronic). Knee pain, right (Acute). Surgical History (Updated 09/11/21 @ 14:58 by MURPHY Kohler). History of total right knee replacement (TKR) (~2019) PREVIOUS FUNCTIONAL STATUS/SOCIAL/FAMILY SUPPORTS:: Noam lives in [facility] with his Anusha. CURRENT FUNCTIONAL STATUS:: Jag was sitting up in a chair when CM met with him. He had been told by his surgeon that he will be discharged later today. CM contacted his Anusha who will transport him home. ADVANCE DIRECTIVES:: none on file Has patient been provided with info about the portal/API?: Yes Did the patient sign up for the portal?: No CODE STATUS:: Full Code INSURANCE COVERAGE / FINANCIAL ISSUES:: Medicare. BC BS CURRENT HOME/COMMUNITY SERVICES/EQUIPMENT:: none PRIMARY CARE PHYSICIAN:: Clemencia Hoover POTENTIAL DISCHARGE NEEDS:: Follow up with surgeon and plan of care PATIENT/FAMILY EDUCATION NEEDS:: Review of discharge instructions, activity, limitations, follow up plan, Ask Me Three TRANSPORTATION:: via private vehicle PLAN:: Jag will be diascharged home with new home health PT. He will follow up with his PCP and surgeon and transport with his via private vehicle.
--- NOTE | 2021-09-19 10:06 | IN_ITS ---
Date of service: 09/19/21 Time of Service: 10:06 PT Notes Visit Reasons: INCARCERATED HERNIA Physical Therapy Inpatient Initial Evaluation Date: 09/19/2021 Referring Doctor: Lizette Humphreys MD PT Orders: PT CONSULT: Status post right inguinal hernia. Patient has R TKA and still has signif problems walking Precautions: Fall. Standard. No lifting more than 5 pounds for the first week post-op. Patient Profile/Admitting Diagnosis: Noam is a 70-year-old male with incarcerated right inguinal hernia and is status post open right inguinal hernia repair with mesh on postoperative day 1. PMHX: Active Problem List (Updated 09/18/21 @ 15:51 by Lizette Humphreys DO) S/P right inguinal hernia repair (Acute) Knee pain, right (Acute) Dementia (Chronic) Cough (Acute) Systolic murmur (Acute) Osteoporosis (Chronic) Parkinsons disease (Chronic) Aortic stenosis (Chronic) Painful total knee replacement, right (Acute) Incarcerated right inguinal hernia (Acute) BPH (benign prostatic hyperplasia) (Chronic) HTN (hypertension) (Chronic) Elevated cholesterol (Chronic) Surgical History (Updated 09/18/21 @ 22:20 by Lizette Humphreys DO) History of lumbar laminectomy multiple History of total right knee replacement (TKR) (~2019) Hx of hand surgery left Social History/Home Situation: Lives with Anusha in a private home with 2 steps to enter without rails. Has FWW and SPC but uses the SPC most of the time. States that he has not fallen in the past 12 months. Equipment Owned/DME: FWW, SPC Subjective: Agreeable to PT consult. Reports no pain and discomfort in the surgical incision but does report pain in the right knee at 9/10 pain. Nurse Tanvir made aware. Objective: General Observation: Supine in bed. Trunk anteroflexed. Lumbar levoscoliosis noted. Right foot everted. Tibia externally rotated. Mental Status: Alert and oriented as to person and place. Able to pay attention, focus, and respond appropriately. Pain: 9/10 in right knee ROM: Right Upper Extremity: Shoulder Flexion WFL. Shoulder abduction WFL. Elbow flexion WFL. Wrist flexion WFL. Functional opening and closing of hand WFL. Left Upper Extremity: Shoulder Flexion WFL. Shoulder abduction WFL. Elbow flexion WFL. Wrist flexion WFL. Functional opening and closing of hand WFL. Right Lower Extremity: Hip flexion WFL. Hip abduction WFL. Knee flexion 20 degrees to 90 degrees. Knee extension -20 degrees ankle dorsiflexion to neutral only. Ankle plantarflexion WFL. Left Lower Extremity: Hip flexion WFL. Hip abduction WFL. Knee flexion 10 degrees to 100 degrees. Knee extension -10 degrees. Ankle dorsiflexion to neutral only. Ankle plantarflexion WFL. Strength: Right Upper Extremity: Shoulder flexors 4-/5. Shoulder abductors 4-/5. Elbow flexors 4-/5. Elbow extensors 4-/5. Environmental Health Physician strong. Left Upper Extremity: Shoulder flexors 4-/5. Shoulder abductors 4-/5. Elbow flexors 4-/5. Elbow extensors 4-/5. Environmental Health Physician strong. Right Lower Extremity: Hip flexors 3+/5. Hip abductors 3+/5. Knee flexors 3-/5. Knee extensors 3-/5. Ankle dorsiflexors 3-/5. Ankle plantarflexors 4-/5. Left Lower Extremity: Hip flexors 3+/5. Hip abductors 3+/5. Knee flexors 3-/5. Knee extensors 3-/5. Ankle dorsiflexors 3-/5. Ankle plantarflexors 4-/5. Bed Mobility/Transfers: Rolling standby assist Supine to sit standby assist Sit to stand standby assist Stand to sit standby assist Bed to reclining chair standby assist Gait: Instructed patient with level surface ambulation of 250 feet requiring standby assist t. Jennifer decreased. Step height decreased. Step length decreased. Increased right foot eversion. Increased right tibial external r otation. Balance: Static Sitting: Normal Dynamic Sitting: Good Static Standing: Fair Dynamic Standing: Fair Special Tests: Mobility Limitations Standardized Measure [facility] AM-PAC 6 clicks Basic Mobility Inpatient Short Form: Raw Score: 23 CMS Score: 11% deficit Informed Consent/Education: Patient was instructed in purpose of PT consult and plan of care. Agreeable to proceed with established PT POC to achieve personal goals. Assessment: Noam demonstrates the need to use a front-wheeled walker for all mobility performance to offload right knee pain and maximize independence. No pain report on right hernia repair incision site. Patient presents with clinical signs and symptoms consistent with current/admitting diagnoses that have resulted to mobility limitations and gait instability as demonstrated by the following impairment level findings: 1. Decreased strength to BLE major muscle groups 2. Impaired standing balance 3. Impaired activity tolerance 4. Limitation of joint range of motion in B knees Impairments are contributing to the following functional limitations: 1. Difficulty with ambulation without assistive device 2. Increased completion time for mobility ADL performance 3. Increased risk for falls Patient is assessed as a 88743 moderate complexity based on the following: History: 80-year-old male with past medical history as indicated above Examination: Demonstrable impairment in strength, balance, and mobility level with underlying impairments and functional limitations as exhibited above as well as deficit score of 11% utilizing the [facility] Mobility Inpatient Short Form Presentation: Stable Decision Makin moderate complexity Goals: N/A PT evaluation and 1 treatment session only for functional mobility training and safety recommendations. Plan of Care/Treatment Plan: N/A PT evaluation and 1 treatment session only for functional mobility training and safety recommendations. DISCHARGE RECOMMENDATIONS: [] Home with no services [] [X] Home with services. Home when medically cleared by surgeon. Patient will benefit from home health PT services in order to progress mobility level using least restrictive assistive ambulatory device, assess home safety, identify additional equipment needs, and establish a functional maintenance program that will increase ability of patient to remain at home. [] Home with outpatient PT [] [] SNF for continued rehabilitation [] [] Longterm Care [] [] SNF versus LTC based on ability to participate and progress [] TREATMENT CODE/TIME: 95003 x 20 minutes, 16893 x 13 minutes beginning at 10:06 AM. Thank you for the opportunity to participate in the care of this patient. Tiera Neely PT, DPT, CLT [facility] [place], [place]
--- NOTE | 2021-09-19 11:19 | PDOC.HHF2F_ITS ---
Home Health Certification Home Health Certification: 1. Encounter Date and Reason I certify that Noam Whyte was seen by Susanne Eng MD on 09/19/21 and that I had a [id number] encounter with this patient that meets the physician face to face encounter requirements. 2. Clinical Findings Supporting Skilled Need and Homebound Status I certify that home health services are medically necessary, include either intermittent residential and/or physical/speech therapy, and that this pa tient is homebound in that absences from the home require considerable and taxing effort and are infrequent or of short duration, or are attributable to the need to receive medical care. [X] (a) Attached documentation from encounter provides clinical findings supporting skilled need and homebound status (including what assistance patient requires to leave the home). The encounter with the patient was in whole, or in part, for the following medical condition, which is the primary reason for home health care: INCARCERATED HERNIA [facility]: Physical Therapy: Patient is weak and needs help with strengthening and to help increase his mobility Speech Therapy: Homebound: 3. Certification and Authentication I certify that I composed the above information based on my clinical judgement relating to this patient's medical condition and, if applicable, clinical findings communicated to me by the NPP or inpatient physician who performed the Home Health Referral. All further orders will be obtained through Lizette Humphreys DO
--- NOTE | 2021-09-19 13:55 | NUR.NOTE ---
PATRICIA Gonzalez, witnessed the patient falling down to the floor on his buttocks, did not hit head. He denied pain. He said he was trying to get his shoes to get ready to home. Charge nurse was notified. Family members were informed.
--- NOTE | 2021-09-19 15:11 | PDOC.CMDIS ---
- If Service Date Differs Date of service: 09/19/21 Time of Service: 15:12 LACE Index Scoring Tool - Questions: Length of Stay (in days): 1 Acuity (Admit via E.D.?): No Comorbidities: Dementia E.D. Visits: 0 - Answers: Total Score: 4 Risk of Readmission: Low Risk Care Management Discharge Reason for Hospitalization: Inguinal hernia repair Discharge Plan: Jag will be diascharged home with new home health PT. He will follow up with his PCP and surgeon and transport with his via private vehicle. Patient/Family Education Needs: Review of discharge instructions, activity, limitations, follow up plan, Ask Me Three Services Needed at Discharge: Home Health Care Services, Physical Therapy
== END 2021-09-19 13:07 | disposition home or self-care (01) ==
LOC: MS 09-19 10:42 → PDS 09-19 10:42
PROVIDERS: Admitting Provider Surgery; PCP Nurse Practitioner Family; Visit Provider Surgery
PROC: (CPT 49507; principal; 2021-09-18 08:15)
DX: K40.30 Unilateral inguinal hernia, with obstruction, without gangrene, not specified as recurrent (principal); I35.0 Nonrheumatic aortic (valve) stenosis; G20 Parkinson's disease; M81.0 Age-related osteoporosis without current pathological fracture; F03.90 Unspecified dementia, unspecified severity, without behavioral disturbance, psychotic disturbance, mood disturbance, and anxiety; N40.0 Benign prostatic hyperplasia without lower urinary tract symptoms; I10 Essential (primary) hypertension; E78.00 Pure hypercholesterolemia, unspecified
CPT/HCPCS: 49507; 88305; 97162; 97530; J1650; 88361; C1781; G0378; J2001; J2370; J2405; J3010

== ENCOUNTER → 2021-09-27 14:40 | Outpatient (BNVA) | payer MEDICARE, BC, SELFPAY | PROVIDERS: PCP Nurse Practitioner Family; Referring Provider Nurse Practitioner Family; Visit Provider Surgery | DX: Z48.815 Encounter for surgical aftercare following surgery on the digestive system (principal); Z87.19 Personal history of other diseases of the digestive system; M25.561 Pain in right knee ==

== ENCOUNTER → 2021-11-22 08:04 | Outpatient (BNVA) | payer MEDICARE, BC, SELFPAY | PROVIDERS: PCP Nurse Practitioner Family; Referring Provider Nurse Practitioner Family; Visit Provider Psychiatry & Neurology Neurology | DX: G20 Parkinson's disease (principal); G30.9 Alzheimer's disease, unspecified; F02.80 Dementia in other diseases classified elsewhere, unspecified severity, without behavioral disturbance, psychotic disturbance, mood disturbance, and anxiety | CPT/HCPCS: 99215 ==

== ENCOUNTER 2021-12-03 14:14 | Emergency (ER) | payer MEDICARE, BC, SELFPAY ==
[2021-12-03] VITALS (48 sets, daily range): BP systolic 79–107; BP diastolic 40–67; PULSE 55–88; RESP 9–20; TEMP 36.5; O2SAT 85–95
--- NOTE | 2021-12-03 15:53 | DI.RAD_ITS ---
Exam(s) XR CHEST 2V PA LATERAL EXAM: XR CHEST 2V PA LATERAL CLINICAL HISTORY: AMS. TECHNIQUE: 2D digital imaging was performed. COMPARISON: No exams were available for comparison FINDINGS: Heart size is normal. The mediastinum is not widened. Lungs are clear. No infiltrates nor pleural effusions. IMPRESSION: No acute pulmonary findings. DATA REPOSITORY: RADIATION DOSE DELIVERED:
--- NOTE | 2021-12-03 15:55 | W.ED.GENAD ---
Discharge Plan Disposition Patient Disposition: HOME Condition: Stable Discharge Details Clinical Impression: Right maxillary sinusitis, Confusion, Hypocalcemia Primary Care Provider: Clemencia Hoover ED Provider: Arvind Oneil Home Meds and New Rx's Prescriptions: New amoxicillin-pot clavulanate 875-125 mg tablet 1 tab PO BID Qty: 12 0RF Continued memantine 5 mg tablet 5 mg PO BID Qty: 60 5RF alendronate [Fosamax] 70 mg tablet 70 mg PO QWEEK 0RF carbidopa-levodopa 25-100 mg tablet 1 tab PO TID 0RF calcium citrate malate-vit D3 250 mg-2.5 mcg (100 unit) tablet 1 tab PO DAILY 0RF simvastatin 20 mg tablet 20 mg PO DAILY 0RF aspirin [Adult Aspirin Regimen] 81 mg tablet,delayed release (DR/EC) 81 mg PO DAILY 0RF Label Comments: Unsure dose ramipril 2.5 mg capsule 2.5 mg PO DAILY 0RF multivitamin Tablet 1 tab PO DAILY 0RF Discharge Instructions Instructions: Amoxicillin/Clavulanate Potassium (By mouth), Sinusitis (ED) Additional Instructions: You are given initial dose of antibiotic this evening. Please take additional dose that was provided in the morning and then continue as prescribed. Please contact your primary care physician to arrange follow-up. Return to the ER immediately for any worsening or new concerning symptoms. Referrals: Clemencia Hoover [Primary Care Provider] - Discharge Data Discharge Date/Time-TO BE ENTERED AT DEPARTURE: 12/03/21 21:58 Medical Decision Making <Marie Oneil MD - Last Filed: 12/24/21 08:39> Noam Whyte is an 81 y/o man with history of Alzheimer's disease, Parkinson's disease, hypertension presenting to emergency room with altered mental status. Patient is accompanied by his who also provides the history. She reports that yesterday patient slept somewhat more than usual. She reports that since waking up this morning patient has not been like himself. He had difficulty getting himself dressed, he had significant difficulty with walking due to shuffling gait, and he seemed much more confused than usual. Patient's reports that he has not had these symptoms in the past, and this seems like an acute change. Patient had neurology appointment for Alzheimer's disease and Parkinson's disease, and was sent from that office to the emergency department by Dr. Fernando upon hearing of acute functional change today. Patient's reports that patient has been complaining somewhat of back pain, although he has history of severe scoliosis and has had back pain in the past. Patient states to me that he has no pain. Patient and his deny fever, cough, shortness of breath, vomiting, apparent focal weakness, rash. Patient's reports that patient has had several large bowel movements today, one quite hard and another soft and loose. Per record review, patient had inguinal hernia repair 09/18/2021. On exam patient is elderly and frail-appearing but acutely nontoxic, alert, pleasant. There is no tenderness to palpation of the thoracic or lumbar spine or paraspinals. Benign abdominal exam. Concern for acute intracranial process, metabolic/lyte derangement, occult infection, other. Doubt acute coronary syndrome. Exam/history at this time with pulmonary embolism, acute aortic pathology, sepsis, meningitis. Plan for telemetry, IV placement, screening labs, CT head, chest x-ray. Will monitor and reassess. Billing labs reviewed, WBC 13.86, lactate 0.9. AG 5.7. Patient signed out to Dr. Arvind Oneil with continued work-up pending. Care signed out by Dr. Jocelyn Oneil with plan to follow-up on CT head, urinalysis and chest x-ray. CT of the head was interpreted by radiology: No acute intracranial abnormality. Complete opacification of the right maxillary sinus most likely compatible with chronic sinusitis. Chest x-ray was reviewed and interpreted by radiology: No acute findings. Labs reviewed and leukocytosis noted of 14,000. Patient has mildly low calcium at 7.8. Urinalysis is not consistent with UTI. Plan to initiate treatment for sinusitis with Augmentin. I spoke with the patient's about diagnostic results. She would like to take Noam home and will monitor him closely and plan to follow-up with PCP. I encouraged her return immediately should she have any worsening or new concerning symptoms. Lab Data Lab results reviewed: Yes I reviewed the patient's lab results. <Arvind Oneil MD - Last Filed: 12/25/21 16:26> Care signed out by Dr. Jocelyn Oneil with plan to follow-up on CT head, urinalysis and chest x-ray. CT of the head was interpreted by radiology: No acute intracranial abnormality. Complete opacification of the right maxillary sinus most likely compatible with chronic sinusitis. Chest x-ray was reviewed and interpreted by radiology: No acute findings. Labs reviewed and leukocytosis noted of 14,000. Patient has mildly low calcium at 7.8. Urinalysis is not consistent with UTI. Plan to initiate treatment for sinusitis with Augmentin. I spoke with the patient's about diagnostic results. She would like to take Noam home and will monitor him closely and plan to follow-up with PCP. I encouraged her return immediately should she have any worsening or new concerning symptoms. HPI <Marie Oneil MD - Last Filed: 12/24/21 08:39> General Date/Time Provider Initiated Documentation: 12/03/21 14:15. HPI Narrative: Noam Whyte is an 81 y/o man with history of Alzheimer's disease, Parkinson's disease, hypertension presenting to emergency room with altered mental status. Patient is accompanied by his who also provides the history. She reports that yesterday patient slept somewhat more than usual. She reports that since waking up this morning patient has not been like himself. He had difficulty getting himself dressed, he had significant difficulty with walking due to shuffling gait, and he seemed much more confused than usual. Patient's reports that he has not had these symptoms in the past, and this seems like an acute change. Patient had neurology appointment for Alzheimer's disease and Parkinson's disease, and was sent from that office to the emergency department by Dr. Fernando upon hearing of acute functional change today. Patient's reports that patient has been complaining somewhat of back pain, although he has history of severe scoliosis and has had back pain in the past. Patient states to me that he has no pain. Patient and his deny fever, cough, shortness of breath, vomiting, apparent focal weakness, rash. Patient's reports that patient has had several large bowel movements today, one quite hard and another soft and loose. Per record review, patient had inguinal hernia repair 09/18/2021. Related Data Home Medications Medication Instructions Recorded Confirmed alendronate 70 mg tablet (Fosamax) 70 mg PO QWEEK 07/06/21 12/03/21 aspirin 81 mg tablet,delayed 81 mg PO DAILY 09/17/21 02/14/22 release (Adult Aspirin Regimen) calcium citrate malate 250 1 tab PO DAILY tab 07/06/21 12/03/21 mg-vitamin D3 2.5 mcg (100 unit) tablet carbidopa 25 mg-levodopa 100 mg 1 tab PO TID 07/06/21 12/03/21 tablet multivitamin 1 tab PO DAILY 07/06/21 12/03/21 ramipril 2.5 mg capsule 2.5 mg PO DAILY 07/06/21 12/03/21 simvastatin 20 mg tablet 20 mg PO DAILY 07/06/21 12/03/21 memantine 5 mg tablet 5 mg PO BID #60 tab 11/22/21 12/03/21 amoxicillin 875 mg-potassium 1 tab PO BID #12 tab 12/03/21 clavulanate 125 mg tablet Previous Rx's Medication Instructions Recorded memantine 5 mg tablet 5 mg PO BID #60 tab 11/22/21 amoxicillin 875 mg-potassium 1 tab PO BID #12 tab 12/03/21 clavulanate 125 mg tablet Allergies Allergy/AdvReac Type Severity Reaction Status Date / Time No Known Allergies Allergy Verified 12/03/21 14:26 General Stated Complaint: GenMedical JAYA: 3 Review of Systems <Marie Oneil MD - Last Filed: 12/24/21 08:39> Narrative: Constitutional: denies fevers, reports increased fatigue Eyes: denies eye pain ENT: denies ear pain, dental pain, sore throat Cardiovascular: denies chest pain, edema Respiratory: denies SOB, cough GI: denies abdominal pain, vomiting, diarrhea : denies flank pain MSK: denies neck pain, arthralgias, myalgias, reports back pain Skin: denies rash Neuro: denies headaches, numbness, weakness, reports change in gait ROS provided by Pt and PFSH <Marie Oneil MD - Last Filed: 12/24/21 08:39> All Active Problems Right maxillary sinusitis (Acute) Confusion (Acute) Hypocalcemia (Acute) Alzheimer disease (Chronic) Knee pain, right (Acute) Systolic murmur (Acute) Osteoporosis (Chronic) Parkinsons disease (Chronic) Aortic stenosis (Chronic) Painful total knee replacement, right (Acute) Incarcerated right inguinal hernia (Acute) BPH (benign prostatic hyperplasia) (Chronic) HTN (hypertension) (Chronic) Elevated cholesterol (Chronic) Surgical History History of lumbar laminectomy multiple History of total right knee replacement (TKR) (~2019) Hx of hand surgery left S/P right inguinal hernia repair Status post total knee replacement, left Social History Smoking/Tobacco Use Status: Never Smoking risk assessment performed?: Yes Alcohol Intake: current Alcohol Intake frequency: 0-2 drinks per day Alcohol type: wine Drug use: Never Substance use type: does not use Household members: spouse Number of Children: 2 Education Level: college 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 What is your relationship status?: Panel score (0-1 are the most socially isolated patients): 1 Additional Social history: unable to assess privately Exam <Marie Oneil MD - Last Filed: 12/24/21 08:39> Narrative Exam Narrative: Constitutional: well and [id number], pleasant, conversing normally HENT: head atraumatic/normocephalic/normal inspection, mucous membranes moist Eyes: conjunctiva normal, sclera normal, pupils 3mm b/l Neck: no stridor, normal ROM, trachea midline Chest: normal inspection Resp: normal work of breathing, LCTAB Cardio: normal rate, normal rhythm, no murmur appreciated GI: abdomen soft, non-tender, non-distended Back: normal inspection, no rash Skin: warm, dry, normal color, no rash Neuro: alert, not altered, grossly non-focal, normal tone Ext: no edema Psych: normal mood, normal affect, normal behavior Course <Marie Oneil MD - Last Filed: 12/24/21 08:39> Vital Signs Vital signs: Vital Signs Temperature 36.5 C 12/03/21 14:20 Pulse 88 12/03/21 14:20 Respiratory Rate 20 12/03/21 14:20 Blood Pressure 104/54 L 12/03/21 14:20 Pulse Oximetry 94 12/03/21 14:20 Temperature 36.5 C 12/03/21 14:20 Temperature Source Skin 12/03/21 14:20 Pulse 88 12/03/21 14:20 Respiratory Rate 20 12/03/21 14:20 Respiratory Effort 02/14/22 14:20 Blood Pressure 104/54 L 12/03/21 14:20 Blood Pressure Position Sitting 12/03/21 14:20 Pulse Oximetry 94 12/03/21 14:20 Oxygen Delivery Method Room Air 12/03/21 14:20 Oxygen Flow Rate 0 12/03/21 14:20 Pain Level 0 12/03/21 14:20 Sign Out <Marie Oneil MD - Last Filed: 12/24/21 08:39> Sign Out Data: Sign Out Comment: Patient signed out to Dr. Oneil at time of shift change with labs, imaging, reassessment pending Last updated by Marie Oneil MD at 12/03/21 16:38
[2021-12-03 16:15] LABS: Lactate 0.9 mmol/L (0.6-1.4)
[2021-12-03 16:16] LABS: HCT 38.1 % (40.0-50.0); HGB 11.8 g/dL (13.5-17.5); MCH 29.3 pg (27.0-33.0); MCV 94.5 fL (80-95); Platelet Count 205 10^3/uL (130-400); RBC 4.03 10^6/uL (4.36-5.78); RDW 13.4 % (11.8-14.1); RDW-SD 46.2 fL; WBC 13.86 10^3/uL (4.4-10.8)
[2021-12-03 16:17] LABS: Absolute Basophil Count 0.01 10^3/uL (0.0-0.2); Absolute Lymphocyte Count 4.73 10^3/uL (1.2-3.4); Absolute Neutrophil Count 8.48 10^3/uL (1.2-6.7); Basophils % 0.1; Immature Grans % 0.3; Lymphocytes % 34.1; MPV 9.6 fL (8.0-11.0); Monocytes % 4.3; Neutrophils % 61.2
[2021-12-03 16:18] LABS: Nucleated RBC 0 %
[2021-12-03 16:44] LABS: Calcium 7.8 mg/dL (8.5-10.1); Glucose 141 mg/dL (74-106)
[2021-12-03 16:45] LABS: ALT 15 U/L (16-63); AST 22 U/L (15-37); Albumin 3.1 g/dL (3.4-5.0); Alkaline Phosphatase 84 U/L (46-116); Anion Gap 5.7 mmol/L (3-11); BUN 34 mg/dL (7-18); Bilirubin, Total 0.9 mg/dL (0.2-1.0); CO2 26.3 mmol/L (21.0-32.0); CREATININE 1.3 mg/dL (0.70-1.30); Chloride 108 mmol/L (98-107); Estimated GFR 52.72 (mL/min/1.73m2); Lipase 27 U/L (73-393); Magnesium 2.2 mg/dL (1.8-2.4); Potassium 3.8 mmol/L (3.5-5.1); Sodium 140 mmol/L (136-145); TSH (W/Ref FT4) 0.78 uIU/mL (0.36-3.74); Total Protein 6.4 g/dL (6.4-8.2); Troponin I < 50 ng/L (<or=60)
[2021-12-03 17:12] LABS: COVID-19 PCR Negative (Negative); Source Nasal/Nares
--- NOTE | 2021-12-03 17:35 | DI.CT_ITS ---
Exam(s) CT HEAD WO EXAM: CT HEAD WO CLINICAL HISTORY: AMS. TECHNIQUE: Imaging Protocol: Axial computed tomography images with coronal and sagittal reformatted images were created and reviewed COMPARISON: No exams were available for comparison FINDINGS: There are no skull fractures. There is complete opacification of the right maxillary sinus. Left m axillary sinus exhibits mild mucosal thickening but no fluid level. Sphenoid sinuses and ethmoidal a ir cells as well as frontal sinuses are clear. There is no evidence of intracranial hemorrhage, mass effect, or shift of midline structures. There are no extra-axial fluid collections. The ventricles are not enlarged or shifted and there is no blo od within the ventricular system nor within the basal cisterns. There is relatively symmetrical atrophy. IMPRESSION: No acute intracranial findings on this noninfused CT scan of the brain. Relatively symmetrical atrophy. Complete opacification of the right maxillary sinus. RADIATION DOSE DELIVERED: 855.35mGy.cm Total DLP DATA REPOSITORY: All CT scans at this facility are submitted to the National Radiology Data Registry (NRDR) Dose Index Registry (DIR) with the [employer] (A[employer]). RADIATION OPTIMIZATION: All CT scans at this facility use at least one of these dose optimization te chniques: automated exposure control; mA and/or kV adjustment per patient size (includes targeted exa ms where dose is matched to clinical indication); or iterative reconstruction.
--- NOTE | 2021-12-03 17:55 | DI.VRAD_ITS ---
PROCEDURE INFORMATION: Exam: XR Chest Exam date and time: 12/03/2021 5:39 PM Age: 81 years old Clinical indication: Other: AMS TECHNIQUE: Imaging protocol: XR of the chest. Views: 2 views. COMPARISON: No relevant prior studies available. FINDINGS: Lungs: Unremarkable. No consolidation. Pleural spaces: Unremarkable. No pleural effusion. No pneumothorax. Heart/Mediastinum: Unremarkable. No cardiomegaly. Bones/joints: Unremarkable. IMPRESSION: No acute findings. Dictated and Authenticated by: Usman Dodson MD. Ordering:DEMI Salazar MD
--- NOTE | 2021-12-03 17:57 | DI.VRAD_ITS ---
PROCEDURE INFORMATION: Exam: CT Head Without Contrast Exam date and time: 12/03/2021 3:54 PM Age: 81 years old Clinical indication: Other: AMS TECHNIQUE: Imaging protocol: Computed tomography of the head without contrast. Radiation optimization: All CT scans at this facility use at least one of these dose optimization techniques: automated exposure control; mA and/or kV adjustment per patient size (includes targeted exams where dose is matched to clinical indication); or iterative reconstruction. COMPARISON: No relevant prior studies available. FINDINGS: Brain: There is marked diffuse cerebral atrophy present, consistent with this patient's age. No midline shift, mass effect, intracranial hemorrhage or extra-axial fluid collection. Cerebral ventricles: No ventriculomegaly. Paranasal sinuses: Complete opacification of the right maxillary sinus, most likely compatible with chronic sinusitis. Mastoid air cells: Visualized mastoid air cells are well aerated. Bones/joints: Unremarkable. No acute fracture. Soft tissues: Unremarkable. IMPRESSION: 1. No evidence of acute intracranial abnormality. 2. Complete opacification of the right maxillary sinus, most likely compatible with chronic sinusitis. Dictated and Authenticated by: Usman Dodson MD. Ordering:DEMI Salazar MD
[2021-12-03 19:37] LABS: Troponin I < 50 ng/L (<or=60)
[2021-12-03 20:50] LABS: Bilirubin Small (Negative); Blood Negative (Negative); Clarity Clear (Clear); Glucose Negative (Negative); Ketones Negative (Negative); Leukocyte Esterase Negative (Negative); Nitrite Negative (Negative); Specific Gravity 1.025 (1.005-1.025); Urobilinogen 0.2 EU/dL (Up TO 0.2)
[2021-12-03 20:57] LABS: Bacteria Few HPF (Negative); Crystals Negative HPF (Negative); Epithelial Cells Few HPF (Negative); RBC 0-2 HPF (0-2); WBC 0-2 HPF (0-5)
[2021-12-03 20:58] LABS: C & S Indicated? No; Casts Negative LPF (Negative); Mucus Moderate (Negative)
[2021-12-03] MEDS: Amoxicillin 875/Clav. 125 TAB PO ×2 (21:45→22:06)
== END 2021-12-03 21:58 | disposition home or self-care (01) ==
PROVIDERS: Student in an Organized Health Care Education/Training Program; Emergency Provider Student in an Organized Health Care Education/Training Program; PCP Nurse Practitioner Family
DX: J01.00 Acute maxillary sinusitis, unspecified (principal); R41.0 Disorientation, unspecified; E83.51 Hypocalcemia
CPT/HCPCS: 80053; 83690; 87635; 99284; 70450; 71046; 81003; 81015; 83605; 83735; 84443; 84484; 85025

== ENCOUNTER 2021-12-11 17:08 | Outpatient (REF) | payer MEDICARE, BC, SELFPAY ==
[2021-12-11 17:01] LABS: HCT 41.9 % (40.0-50.0); HGB 12.8 g/dL (13.5-17.5); MCH 29.5 pg (27.0-33.0); MCHC 30.5 % (32.0-36.0); MCV 96.5 fL (80-95); MPV 11.1 fL (8.0-11.0); Platelet Count 268 10^3/uL (130-400); RBC 4.34 10^6/uL (4.36-5.78); RDW 13.4 % (11.8-14.1); RDW-SD 47.9 fL; WBC 14.05 10^3/uL (4.4-10.8)
[2021-12-11 17:08] LABS: BUN 23 mg/dL (7-18); Calcium 8.7 mg/dL (8.5-10.1); Chloride 106 mmol/L (98-107); Glucose 77 mg/dL (74-106); Potassium 5.4 mmol/L (3.5-5.1); Sodium 143 mmol/L (136-145)
== END 2021-12-11 17:09 | disposition home or self-care (01) ==
LOC: NCHCN 17:08
PROVIDERS: PCP Nurse Practitioner Family; Visit Provider Nurse Practitioner Family
DX: D72.828 Other elevated white blood cell count (principal); R94.4 Abnormal results of kidney function studies; E83.51 Hypocalcemia
CPT/HCPCS: 80048; 85027

== ENCOUNTER 2021-12-21 13:18 | Outpatient (REF) | payer MEDICARE, BC, SELFPAY ==
[2021-12-21 16:01] LABS: Abs Immature Grans 0.02 10^3/uL (0.0-0.06); Absolute Basophil Count 0.08 10^3/uL (0.0-0.2); Absolute Eosinophil Count 0.07 10^3/uL (0.0-0.7); Absolute Lymphocyte Count 7.94 10^3/uL (1.2-3.4); Absolute Monocyte Count 0.41 10^3/uL (0.1-0.8); Basophils % 0.7; Eosinophils % 0.6; HCT 41.4 % (40.0-50.0); HGB 12.8 g/dL (13.5-17.5); Immature Grans % 0.2; Lymphocytes % 65.7; MCH 29.6 pg (27.0-33.0); MCHC 30.9 % (32.0-36.0); MCV 95.8 fL (80-95); Monocytes % 3.4; Neutrophils % 29.4; Nucleated RBC 0 %; Platelet Count 208 10^3/uL (130-400); RBC 4.32 10^6/uL (4.36-5.78); RDW 13.5 % (11.8-14.1); RDW-SD 47.6 fL; WBC 12.09 10^3/uL (4.4-10.8)
[2021-12-21 16:12] LABS: Absolute Neutrophil Count 3.55 10^3/uL (1.2-6.7)
[2021-12-21 16:30] LABS: Diff Comment Agrees w/ Instrument; RBC Morphology Normal
== END 2021-12-21 13:19 | disposition home or self-care (01) ==
LOC: NCHCN 13:18
PROVIDERS: PCP Nurse Practitioner Family; Visit Provider Nurse Practitioner Family
DX: D72.829 Elevated white blood cell count, unspecified (principal)
CPT/HCPCS: 85025

== ENCOUNTER → 2022-01-03 07:46 | Outpatient (BNVA) | payer MEDICARE, BC, SELFPAY | PROVIDERS: PCP Nurse Practitioner Family; Referring Provider Nurse Practitioner Family; Visit Provider Psychiatry & Neurology Neurology | DX: G20 Parkinson's disease (principal); G30.9 Alzheimer's disease, unspecified; F02.80 Dementia in other diseases classified elsewhere, unspecified severity, without behavioral disturbance, psychotic disturbance, mood disturbance, and anxiety | CPT/HCPCS: 99443 ==

== ENCOUNTER → 2022-03-06 10:41 | Outpatient (BNVA) | payer MEDICARE, BC, SELFPAY | PROVIDERS: PCP Nurse Practitioner Family; Referring Provider Nurse Practitioner Family; Visit Provider Psychiatry & Neurology Neurology | DX: G20 Parkinson's disease (principal); G30.9 Alzheimer's disease, unspecified; F02.80 Dementia in other diseases classified elsewhere, unspecified severity, without behavioral disturbance, psychotic disturbance, mood disturbance, and anxiety | CPT/HCPCS: 99214 ==

== ENCOUNTER → 2022-05-14 14:43 | Outpatient (BNVA) | payer MEDICARE, BC, SELFPAY | PROVIDERS: PCP Nurse Practitioner Family; Referring Provider Nurse Practitioner Family; Visit Provider Psychiatry & Neurology Neurology | DX: G20 Parkinson's disease (principal); G30.9 Alzheimer's disease, unspecified; F02.80 Dementia in other diseases classified elsewhere, unspecified severity, without behavioral disturbance, psychotic disturbance, mood disturbance, and anxiety; M25.561 Pain in right knee; G89.29 Other chronic pain; Z96.651 Presence of right artificial knee joint | CPT/HCPCS: 99214 ==

== ENCOUNTER → 2022-07-16 12:45 | Outpatient (BNVA) | payer MEDICARE, BC, SELFPAY | PROVIDERS: PCP Nurse Practitioner Family; Referring Provider Nurse Practitioner Family; Visit Provider Psychiatry & Neurology Neurology | DX: G20 Parkinson's disease (principal); G30.9 Alzheimer's disease, unspecified; F02.80 Dementia in other diseases classified elsewhere, unspecified severity, without behavioral disturbance, psychotic disturbance, mood disturbance, and anxiety | CPT/HCPCS: 99214 ==

== ENCOUNTER → 2022-08-23 13:27 | Outpatient (BNVA) | payer MEDICARE, BC, SELFPAY | PROVIDERS: PCP Nurse Practitioner Family; Referring Provider Nurse Practitioner Family; Visit Provider Internal Medicine Cardiovascular Disease | DX: I35.0 Nonrheumatic aortic (valve) stenosis (principal); I10 Essential (primary) hypertension; R01.1 Cardiac murmur, unspecified; G20 Parkinson's disease | CPT/HCPCS: 99213 ==

== ENCOUNTER → 2022-09-30 10:39 | Outpatient (BNVA) | payer MEDICARE, BC, SELFPAY | PROVIDERS: PCP Nurse Practitioner Family; Referring Provider Nurse Practitioner Family; Visit Provider Psychiatry & Neurology Neurology | DX: G20 Parkinson's disease (principal); G30.9 Alzheimer's disease, unspecified; F02.80 Dementia in other diseases classified elsewhere, unspecified severity, without behavioral disturbance, psychotic disturbance, mood disturbance, and anxiety | CPT/HCPCS: 99214 ==

== ENCOUNTER 2022-11-12 10:40 | Emergency (ER) | payer MEDICARE, BC, SELFPAY ==
[2022-11-12 10:46] VITALS: BP 151/67; PULSE 74; RESP 20; TEMP 36.9; O2SAT 95
--- NOTE | 2022-11-12 11:00 | DI.CT_ITS ---
Exam(s) CT HEAD CERVICAL SPINE WO EXAM: CT HEAD CERVICAL SPINE WO CLINICAL HISTORY: fall, head injruy. TECHNIQUE: Imaging Protocol: Axial computed tomography images with coronal and sagittal reformatted images were created and reviewed COMPARISON: CT CT HEAD WO from 12/03/2021 FINDINGS: BRAIN: There are no skull fractures nor fluid in the visualized paranasal sinuses. There is no evidence of intracranial hemorrhage, mass effect, or shift of midline structures. There are no extra-axial fluid collections. The ventricles are not enlarged or shifted and there is no blo od within the ventricular system nor within the basal cisterns. CERVICAL SPINE: There is reversal of the normal curvature. There is no evidence of acute fracture. There is degenerative anterolisthesis of C4 upon C5 which is related to advanced facet arthropathy. There is advanced disc space narrowing at C5-6, C6-7 and C7- T1 levels. Multilevel facet arthropathy. No evidence of facet joint malalignment. No significant osseous lesions evident. IMPRESSION: No acute intracranial findings on this noninfused CT scan of the brain. There are advanced degenerative changes throughout the cervical spine but no evidence of acute cervic al spine fracture, malalignment, nor acute compromise of the cervical spinal canal. Degenerative ant erolisthesis of C4 upon C5 is noted. Called by myself to the ER provider. RADIATION DOSE DELIVERED: 1,596.77mGy.cm Total DLP DATA REPOSITORY: All CT scans at this facility are submitted to the National Radiology Data Registry (NRDR) Dose Index Registry (DIR) with the [employer] (ACR). RADIATION OPTIMIZATION: All CT scans at this facility use at least one of these dose optimization te chniques: automated exposure control; mA and/or kV adjustment per patient size (includes targeted exa ms where dose is matched to clinical indication); or iterative reconstruction.
--- NOTE | 2022-11-12 12:15 | W.ED.GENAD ---
Discharge Plan Disposition Patient Disposition: Home Condition: Stable Discharge Details Clinical Impression: Head injury due to trauma, Forehead abrasion Primary Care Provider: Clemencia Hoover ED Provider: Bruce Hirsch Home Meds and New Rx's Prescriptions: Continued saw palmetto 450 mg capsule 450 mg PO BID Rx Instructions: give with food (meal/snack) memantine 10 mg tablet 10 mg PO BID Qty: 180 3RF carbidopa-levodopa 25-100 mg tablet 2 tab PO TID Qty: 540 3RF amoxicillin 500 mg capsule 2,000 mg PO .COMPLEX PRN Label Comments: prior to dental appointments Rx Instructions: 2,000 mg orally ; PRN; alendronate [Fosamax] 70 mg tablet 70 mg PO QWEEK simvastatin 20 mg tablet 20 mg PO DAILY aspirin [Adult Aspirin Regimen] 81 mg tablet,delayed release (DR/EC) 81 mg PO DAILY Label Comments: Unsure dose ramipril 2.5 mg capsule 2.5 mg PO DAILY multivitamin Tablet 1 tab PO DAILY calcium citrate malate-vit D3 250 mg-2.5 mcg (100 unit) tablet 2 tab PO DAILY Discharge Instructions Instructions: Head Injury (ED) Additional Instructions: Please continue to monitor patient and return for any new or significant worsening of symptoms otherwise you may take [id number] medication as needed for pain and continue daily medications. Follow-up with primary care provider as needed for reassessment and monitor wound for any signs of infection. Referrals: Clemencia Hoover [Primary Care Provider] - Discharge Data Discharge Date/Time-TO BE ENTERED AT DEPARTURE: 11/12/22 12:33 Medical Decision Making Patient presenting to the emergency department for chief complaint of unwitnessed fall with head injury. Patient has significant past medical history of Parkinson's and Alzheimer's and was carrying groceries when she heard patient yell. Patient states mechanical fall with no other complaints. Patient denies any pain or discomfort neurological symptoms, nausea vomiting, loss of consciousness. Patient does have a 2.5 cm skin tear to the forehead and exam is otherwise unremarkable. Given patient's age and unwitnessed fall will perform head and cervical spine imaging to ensure no emergent early findings and will continue to monitor patient. Wound was covered with Mepilex and discussed radiological imaging with radiologist whom states no acute findings with degenerative cervical spinal changes. Patient reassessed and still continues to endorse no pain or discomfort. Given this I do feel that patient is able to be safely discharged with monitoring at home and returning for any new or worsening symptoms. After discussion of diagnosis and plan of care patient and significant other has no further needs, questions, or concerns and states clear understanding to return to the emergency department for any worsening symptoms. This documentation was generated using [employer] dictation system, please disregard any oddities of phrase or misspellings. Medical Records Medical records reviewed: Yes I reviewed the patient's medical records. Imaging Data Radiologic Study: Imaging: CT Scan Radiologist's impression: Exam(s) a CT:CT head & cervical spine wo Exam(s) CT HEAD CERVICAL SPINE WO EXAM: CT HEAD CERVICAL SPINE WO CLINICAL HISTORY: fall, head injruy. TECHNIQUE: Imaging Protocol: Axial computed tomography images with coronal and sagittal reformatted images were created and reviewed COMPARISON: CT CT HEAD WO from 12/03/2021 FINDINGS: BRAIN: There are no skull fractures nor fluid in the visualized paranasal sinuses. There is no evidence of intracranial hemorrhage, mass effect, or shift of midline structures. There are no extra-axial fluid collections. The ventricles are not enlarged or shifted and there is no blood within the ventricular system nor within the basal cisterns. CERVICAL SPINE: There is reversal of the normal curvature. There is no evidence of acute fracture. There is degenerative anterolisthesis of C4 upon C5 which is related to advanced facet arthropathy. There is advanced disc space narrowing at C5-6, C6-7 and C7-T1 levels. Multilevel facet arthropathy. No evidence of facet joint malalignment. No significant osseous lesions evident. IMPRESSION: No acute intracranial findings on this noninfused CT scan of the brain. There are advanced degenerative changes throughout the cervical spine but no evidence of acute cervical spine fracture, malalignment, nor acute compromise of the cervical spinal canal. Degenerative anterolisthesis of C4 upon C5 is noted. HPI General Mode of arrival: wheelchair. Date/Time Provider Initiated Documentation: 11/12/22 10:48. Limitations to Documentation: no limitations. Information obtained by: patient and RN notes reviewed. History of Present Illness 81 year old M presents to the emergency department with the chief complaint of Fall with head injury, and is localized to the head. Patient reports no radiation. Patient started experiencing this hour(s) (1) and it has been constant. No relieving factors improve symptom(s), No exacerbating factors reported . Patient notes no other symptoms.. Patient did receive the following treatments prior to arrival, none Related Data Home Medications Medication Instructions Recorded Confirmed alendronate 70 mg tablet (Fosamax) 70 mg PO QWEEK 07/06/21 11/12/22 aspirin 81 mg tablet,delayed 81 mg PO DAILY 07/06/21 11/12/22 release (Adult Aspirin Regimen) multivitamin 1 tab PO DAILY 07/06/21 11/12/22 ramipril 2.5 mg capsule 2.5 mg PO DAILY 07/06/21 11/12/22 simvastatin 20 mg tablet 20 mg PO DAILY 07/06/21 11/12/22 memantine 10 mg tablet 10 mg PO BID #180 tabs 01/03/22 11/12/22 saw palmetto 450 mg capsule 450 mg PO BID 01/03/22 11/12/22 calcium citrate malate 250 2 tab PO DAILY 05/14/22 11/12/22 mg-vitamin D3 2.5 mcg (100 unit) tablet carbidopa 25 mg-levodopa 100 mg 2 tab PO TID #540 tabs 05/14/22 11/12/22 tablet amoxicillin 500 mg capsule 2,000 mg PO .COMPLEX PRN 08/23/22 11/12/22 Previous Rx's Medication Instructions Recorded memantine 10 mg tablet 10 mg PO BID #180 tabs 01/03/22 carbidopa 25 mg-levodopa 100 mg 2 tab PO TID #540 tabs 05/14/22 tablet Allergies Allergy/AdvReac Type Severity Reaction Status Date / Time No Known Allergies Allergy Verified 11/12/22 10:53 General Stated Complaint: Fall/Non TraumaCriteria JAYA: 4 Review of Systems Constitutional Constitutional: Denies frequent falls, Denies headache(s) and Denies weakness Eyes Eyes: Denies change in vision ENT Ears, Nose, Mouth, and Throat: Denies dizziness, Denies facial pain, Denies headache(s) and Denies neck pain Cardiovascular Cardiovascular: Denies chest pain, Denies syncope and Denies dyspnea Respiratory Respiratory: Denies pain on inspiration and Denies dyspnea Gastrointestinal Gastrointestinal: Denies abdominal pain, Denies nausea and Denies vomiting Musculoskeletal Musculoskeletal: Denies back pain, Denies muscle weakness and Denies neck pain Integumentary/Breasts Skin/Breast: Reports wounds Neurologic Neurologic: Denies dizziness, Denies syncope, Denies frequent falls, Denies headache(s), Denies paresthesias and Denies weakness PFSH All Active Problems Head injury due to trauma (Acute) Forehead abrasion (Acute) Alzheimer disease (Chronic) Knee pain, right (Acute) Systolic murmur (Acute) Osteoporosis (Chronic) Parkinsons disease (Chronic) Aortic stenosis (Chronic) Painful total knee replacement, right (Acute) Incarcerated right inguinal hernia (Acute) BPH (benign prostatic hyperplasia) (Chronic) HTN (hypertension) (Chronic) Elevated cholesterol (Chronic) Surgical History History of lumbar laminectomy multiple History of total right knee replacement (TKR) (~2019) Hx of hand surgery left S/P right inguinal hernia repair Status post total knee replacement, left Social History Smoking/Tobacco Use Status: Never Smoking risk assessment performed?: Yes Alcohol Intake: current Alcohol Intake frequency: 0-2 drinks per day Alcohol type: wine Drug use: Never Substance use type: does not use Household members: spouse Number of Children: 2 Education Level: college 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 What is your relationship status?: Panel score (0-1 are the most socially isolated patients): 1 Additional Social history: unable to assess privately Exam Const General: cooperative, healthy appearing, no acute distress and well groomed Orientation: alert and awake [facility] Head: normocephalic and abrasion (mild skin tear) left frontal 2.5 in Ears: hearing grossly normal bilaterally and TM's normal bilaterally General nose exam: external nose normal and nares normal Face and sinus: normal facial exam, face symmetric and no tenderness Mouth: oral mucosae normal and moist mucous membranes Throat: posterior oropharynx normal Eyes Visual Carbone: normal visual carbone by confrontation Alignment and Position: alignment normal Periorbital: periorbital findings normal Eyelids: eyelids normal Sclera: sclerae normal Pupils: PERRL EOM: EOM intact bilaterally Neck Neck: normal visual inspection and full ROM Resp Effort & Inspection: normal respiratory effort and able to speak in complete sentences Auscultation: clear to auscultation bilaterally Cardio Rate: regular rate Rhythm: regular rhythm Heart Sounds: S1 normal and S2 normal Back/Spine/Pelvis Cervical Spine: cervical ROM normal, No loss of normal cervical lordosis, No cervical muscular tenderness, No cervical spinal tenderness and No step off deformity Thoracic/Lumbar Spine: No thoracic spinal tenderness and No lumbar spinal tenderness Skin Trauma: abrasion Neuro General: patient alert, patient awake, patient oriented x3, tone normal, moves all extremities and CN's II-XI intact bilaterally Speech: speech normal Motor: muscle tone normal throughout Sensory Exam: no sensory deficits noted Course Vital Signs Vital signs: Vital Signs Temperature 36.9 C 11/12/22 10:46 Pulse 74 11/12/22 10:46 Respiratory Rate 20 11/12/22 10:46 Blood Pressure 151/67 H 11/12/22 10:46 Pulse Oximetry 95 11/12/22 10:46 Temperature 36.9 C 11/12/22 10:46 Temperature Source Temporal Artery Scan 11/12/22 10:46 Pulse 74 11/12/22 10:46 Respiratory Rate 20 11/12/22 10:46 Respiratory Effort 11/12/22 10:59 Blood Pressure 151/67 H 11/12/22 10:46 Blood Pressure Position Sitting 11/12/22 10:46 Pulse Oximetry 95 11/12/22 10:46 Oxygen Delivery Method Room Air 11/12/22 10:46 Oxygen Flow Rate 0 11/12/22 10:46 Pain Level 1 11/12/22 10:46 PAWSS Have you Been Recently Intoxicated or Drunk Within the Last 30 days?: No Have you Ever Experienced Previous Episodes of Alcohol Withdrawal?: No Have you ever Experienced Withdrawal Seizures?: No Have you ever Experienced Delirium Tremens(DT)s?: No Have you ever undergone Alcohol Rehabilitation Treatment (i.e, inpt ot outpatient treatment programs)?: No Have you ever Experienced Blackouts?: No Have you ever Combined Alcohol with other Downers within the last 90 days?: No Have you ever Combined Alcohol with any other Substance of Abuse during the last 90 days?: No Result: 0
[2022-11-12 12:33] VITALS: BP 146/70; PULSE 72; TEMP 36.4; O2SAT 94
== END 2022-11-12 12:33 | disposition home or self-care (01) ==
PROVIDERS: Emergency Provider Nurse Practitioner Family; PCP Nurse Practitioner Family
DX: S00.81XA Abrasion of other part of head, initial encounter (principal); G30.9 Alzheimer's disease, unspecified; F02.80 Dementia in other diseases classified elsewhere, unspecified severity, without behavioral disturbance, psychotic disturbance, mood disturbance, and anxiety; G20 Parkinson's disease; Z79.82 Long term (current) use of aspirin; W19.XXXA Unspecified fall, initial encounter
CPT/HCPCS: 99284; 70450; 72125; 99282

== ENCOUNTER 2022-11-14 02:23 | Outpatient (CLI) | payer MEDICARE, BC, SELFPAY ==
[2022-11-14 09:53] LABS: Abs Immature Grans 0.01 10^3/uL (0.0-0.06); Absolute Basophil Count 0.08 10^3/uL (0.0-0.2); Absolute Eosinophil Count 0.09 10^3/uL (0.0-0.7); Absolute Lymphocyte Count 8.33 10^3/uL (1.2-3.4); Absolute Monocyte Count 0.57 10^3/uL (0.1-0.8); Absolute Neutrophil Count 3.66 10^3/uL (1.2-6.7); Basophils % 0.6; Eosinophils % 0.7; HCT 38.2 % (40.0-50.0); HGB 12.4 g/dL (13.5-17.5); Immature Grans % 0.1; Lymphocytes % 65.4; MCHC 32.5 % (32.0-36.0); MCV 99 fL (80-95); MPV 10.5 fL (8.0-11.0); Monocytes % 4.5; Neutrophils % 28.7; Platelet Count 141 10^3/uL (130-400); RBC 3.87 10^6/uL (4.36-5.78); RDW 13.2 % (11.8-14.1); RDW-SD 47.8 fL; WBC 12.74 10^3/uL (4.4-10.8)
[2022-11-14 10:04] LABS: Diff Comment Diff Reviewed; RBC Morphology Normal
[2022-11-14 10:26] LABS: ALT 14 U/L (16-63); AST 19 U/L (15-37); Albumin 3.8 g/dL (3.4-5.0); Alkaline Phosphatase 75 U/L (46-116); Anion Gap 5.8 mmol/L (3-11); BUN 34 mg/dL (7-18); Bilirubin, Total 0.7 mg/dL (0.2-1.0); CO2 29.2 mmol/L (21.0-32.0); CREATININE 1.4 mg/dL (0.70-1.30); Calcium 8.9 mg/dL (8.5-10.1); Chloride 107 mmol/L (98-107); Estimated GFR 49.87 (mL/min/1.73m2); Glucose 83 mg/dL (74-106); Potassium 4.8 mmol/L (3.5-5.1); Sodium 142 mmol/L (136-145); Total Protein 6.3 g/dL (6.4-8.2)
== END 2022-11-14 02:24 | disposition home or self-care (01) ==
LOC: LBO 02:24
PROVIDERS: PCP Nurse Practitioner Family; Visit Provider Internal Medicine Hematology & Oncology
DX: C91.10 Chronic lymphocytic leukemia of B-cell type not having achieved remission (principal)
CPT/HCPCS: 36415; 80053; 85025

== ENCOUNTER → 2022-11-19 10:49 | Outpatient (BNVA) | payer MEDICARE, BC, SELFPAY | PROVIDERS: PCP Nurse Practitioner Family; Referring Provider Nurse Practitioner Family; Visit Provider Psychiatry & Neurology Neurology | DX: G20 Parkinson's disease (principal); G30.9 Alzheimer's disease, unspecified; F02.80 Dementia in other diseases classified elsewhere, unspecified severity, without behavioral disturbance, psychotic disturbance, mood disturbance, and anxiety | CPT/HCPCS: 99214 ==

== ENCOUNTER → 2023-01-14 11:15 | Outpatient (BNVA) | payer MEDICARE, BC, SELFPAY | PROVIDERS: PCP Nurse Practitioner Family; Referring Provider Nurse Practitioner Family; Visit Provider Psychiatry & Neurology Neurology | DX: G20 Parkinson's disease (principal); G30.9 Alzheimer's disease, unspecified; F02.80 Dementia in other diseases classified elsewhere, unspecified severity, without behavioral disturbance, psychotic disturbance, mood disturbance, and anxiety | CPT/HCPCS: 99214 ==

== ENCOUNTER → 2023-02-26 08:12 | Outpatient (BNVA) | payer MEDICARE, BC, SELFPAY | PROVIDERS: PCP Nurse Practitioner Family; Referring Provider Nurse Practitioner Family; Visit Provider Psychiatry & Neurology Neurology | DX: G20 Parkinson's disease (principal); G30.9 Alzheimer's disease, unspecified; F02.80 Dementia in other diseases classified elsewhere, unspecified severity, without behavioral disturbance, psychotic disturbance, mood disturbance, and anxiety; R44.3 Hallucinations, unspecified | CPT/HCPCS: 99214 ==

== ENCOUNTER → 2023-05-06 12:15 | Outpatient (BNVA) | payer MEDICARE, BC, SELFPAY | PROVIDERS: PCP Nurse Practitioner Family; Referring Provider Nurse Practitioner Family; Visit Provider Psychiatry & Neurology Neurology | DX: G20 Parkinson's disease (principal); G30.9 Alzheimer's disease, unspecified; F02.80 Dementia in other diseases classified elsewhere, unspecified severity, without behavioral disturbance, psychotic disturbance, mood disturbance, and anxiety; R44.3 Hallucinations, unspecified; I10 Essential (primary) hypertension | CPT/HCPCS: 99214 ==

== ENCOUNTER 2023-05-22 09:26 | Observation (INO) | payer MEDICARE, BC, SELFPAY ==
[2023-05-22] VITALS (71 sets, daily range): BP systolic 58–162; BP diastolic 40–106; PULSE 48–128; RESP 10–26; TEMP 35.7–36.9; O2SAT 90–98
--- NOTE | 2023-05-22 10:00 | DI.RAD_ITS ---
Exam(s) XR PORTABLE CHEST AP EXAM: XR PORTABLE CHEST AP CLINICAL HISTORY: weakness TECHNIQUE: 2D digital imaging was performed. COMPARISON: 03 December 2021 FINDINGS: Leads overlie the chest. LUNGS: Clear. No pleural abnormality seen. HEART: Normal size. AORTA: Normal diameter. Calcification. Tortuous. BONES: Unremarkable for age. Soft tissues: Unremarkable. IMPRESSION: No acute findings. DATA REPOSITORY: RADIATION DOSE DELIVERED:
--- NOTE | 2023-05-22 10:00 | RT.EKG_ITS ---
APPROVED REPORT Exam: Resting ECG Reason for Exam: weakness Patient Location: E HR:81 bpm ECG Measurements Heart Rate 81 AXIS TN 303 P 48 QRSd 101 QRS 48 QT 388 T 65 QTc 451 Conclusion Sinus rhythm...normal P axis, V-rate 60- 99 Prolonged TN interval...TN >220, V-rate 50- 90 Probable left ventricular hypertrophy...(RaVL+SV3)xQRSd >280 Probable inferior infarct, old...Q>35mS, II III aVF Sinus rhtythm, first degreee heart block, left ventricular hypertrophy, inferior q wave. When compare d to prior 08/24/21 HR has inceased.
--- NOTE | 2023-05-22 10:01 | ED.GENADUL_ITS ---
Discharge Plan Disposition Patient Disposition: Admit to [facility] Condition: Stable Discharge Details Chief Complaint: GenMedical Clinical Impression: Weakness, Parkinson disease, Orthostatic hypotension, Dementia Primary Care Provider: Homer Nolan ED Provider: Jennifer Andrew Home Meds and New Rx's Prescriptions: No Action carbidopa-levodopa 25-250 mg tablet 1 tab PO TID Qty: 270 3RF Rx Instructions: Take at 8am, 1pm, and 6pm memantine 10 mg tablet 10 mg PO BID Qty: 180 3RF saw palmetto 450 mg capsule 450 mg PO BID Rx Instructions: give with food (meal/snack) amoxicillin 500 mg capsule 2,000 mg PO .COMPLEX PRN Patient Comments: prior to dental appointments Rx Instructions: 2,000 mg orally ; PRN; alendronate [Fosamax] 70 mg tablet 70 mg PO QWEEK simvastatin 20 mg tablet 20 mg PO DAILY aspirin [Adult Aspirin Regimen] 81 mg tablet,delayed release (DR/EC) 81 mg PO DAILY Patient Comments: Unsure dose ramipril 2.5 mg capsule 2.5 mg PO DAILY multivitamin Tablet 1 tab PO DAILY calcium citrate malate-vit D3 250 mg-2.5 mcg (100 unit) tablet 2 tab PO DAILY Medical Decision Making 82-year-old male presents for evaluation of new onset of weakness. On examination no weakness is noted. He is hypotensive. EKG did not show any acute ischemic changes. Laboratory studies show baseline renal insufficiency with some slight increase in creatinine today. After IV fluids patient's hypotension did improve however he was found to have orthostatic hypotension. Second liter of IV fluid was ordered. Patient had persistent orthostatic hypotension as well as weakness with standing. Troponin was flat x2. Chest x- ray unremarkable. Do feel that patient will require admission for further IV fluids and monitoring. Case discussed with hospitalist who will admit to their service. HPI General Date/Time Provider Initiated Documentation: 05/22/23 09:28 . HPI Narrative: 82-year-old male with history of dementia presents for evaluation of weakness. Patient had PT earlier today. He finished physical therapy and upon getting home his had significant difficulty getting up in the house. He normally is able to ambulate in the house by himself. He denies any chest pain or shortness of breath. No fevers or chills. No cough or cold. He denies any leg pain or weakness. He did eat earlier today. Denies any known falls or i njuries. Related Data Home Medications Medication Instructions Recorded Confirmed alendronate 70 mg tablet (Fosamax) 70 mg PO QWEEK 07/06/21 05/22/23 aspirin 81 mg tablet,delayed 81 mg PO DAILY 07/06/21 05/22/23 release (Adult Aspirin Regimen) multivitamin 1 tab PO DAILY 07/06/21 05/22/23 ramipril 2.5 mg capsule 2.5 mg PO DAILY 07/06/21 05/22/23 simvastatin 20 mg tablet 20 mg PO DAILY 07/06/21 05/22/23 saw palmetto 450 mg capsule 450 mg PO BID 01/03/22 05/22/23 calcium citrate malate 250 2 tab PO DAILY 05/14/22 05/22/23 mg-vitamin D3 2.5 mcg (100 unit) tablet amoxicillin 500 mg capsule 2,000 mg PO .COMPLEX PRN 08/23/22 05/22/23 carbidopa 25 mg-levodopa 250 mg 1 tab PO TID #270 tabs 11/19/22 05/22/23 tablet memantine 10 mg tablet 10 mg PO BID #180 tabs 11/19/22 05/22/23 Previous Rx's Medication Instructions Recorded carbidopa 25 mg-levodopa 250 mg 1 tab PO TID #270 tabs 11/19/22 tablet memantine 10 mg tablet 10 mg PO BID #180 tabs 11/19/22 Allergies Allergy/AdvReac Type Severity Reaction Status Date / Time No Known Allergies Allergy Verified 05/22/23 10:11 General Stated Complaint: GenMedical JAYA: 3 Review of Systems Narrative: Remainder of review of systems otherwise unobtainable due to dementia. PFSH All Active Problems (Updated 05/22/23 @ 14:53 by Jennifer Andrew MD) Weakness (Acute) Parkinson disease (Chronic) Orthostatic hypotension (Acute) Dementia (Chronic) Hallucinations (Acute) Alzheimer disease (Chronic) Knee pain, right (Acute) Systolic murmur (Acute) Osteoporosis (Chronic) Parkinsons disease (Chronic) Aortic stenosis (Chronic) Painful total knee replacement, right (Acute) Incarcerated right inguinal hernia (Acute) BPH (benign prostatic hyperplasia) (Chronic) HTN (hypertension) (Chronic) Elevated cholesterol (Chronic) Surgical History History of lumbar laminectomy multiple History of total right knee replacement (TKR) (~2019) Hx of hand surgery left S/P right inguinal hernia repair Status post total knee replacement, left Social History Smoking/Tobacco Use Status: Never Smoking risk assessment performed?: Yes Alcohol Intake: current Alcohol Intake frequency: 0-2 drinks per day Alcohol type: wine Drug use: Never Substance use type: does not use Household members: spouse Housing: house Number of Children: 2 Education Level: college 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 no wheezes, rales, rhonchi, or retractions Abd: soft, non-tender, non-distended, normal bowel sounds, no rebound or guarding, no peritoneal signs Musculoskeletal: full range of motion of arms and legs, no tenderness to palpation. no clubbing, cyanosis, or edema Neurologic: GCS 15, speech normal, sensation intact, appropriate for age, strength normal Psych: alert and oriented to person and place Skin: no petechiae, no lesions, warm and dry Course Vital Signs Vital signs: Vital Signs Temperature 36.9 C 05/22/23 09:43 Pulse 70 05/22/23 09:43 Respiratory Rate 16 05/22/23 09:43 Blood Pressure 86/53 L 05/22/23 09:43 Pulse Oximetry 91 L 05/22/23 09:43 Temperature 36.9 C 05/22/23 09:43 Temperature Source Temporal Artery Scan 05/22/23 09:43 Pulse 70 05/22/23 09:43 Respiratory Rate 16 05/22/23 09:43 Blood Pressure 86/53 L 05/22/23 09:43 Blood Pressure Position Supine 05/22/23 09:43 Pulse Oximetry 91 L 05/22/23 09:43 Oxygen Delivery Method Room Air 05/22/23 09:43 Oxygen Flow Rate 0 05/22/23 09:43 Pain Level 0 05/22/23 09:43 Critical Care Time Critical Care Time Attestation: CRITICAL CARE Total critical care time: 35 minutes Critical care concerns: Hypotension Critical care interventions: IV fluids, reassessment, hospitalist consultation, record review Total critical care time included the assessment and discussions as described in the emergency department history, physical, and medical decision making. The critical care time provided excludes separately billable procedures.
[2023-05-22] MEDS: Normal Saline 1,000 ML 1000 ML IV ×2 (10:21→13:28)
[2023-05-22 10:23] LABS: HCT 37.5 % (40.0-50.0); MCH 31.9 pg (27.0-33.0); MCV 100 fL (80-95); Platelet Count 139 10^3/uL (130-400); RBC 3.76 10^6/uL (4.36-5.78); RDW 12.5 % (11.8-14.1); RDW-SD 45.3 fL; WBC 9.91 10^3/uL (4.4-10.8)
[2023-05-22 10:26] LABS: MPV 9.8 fL (8.0-11.0)
[2023-05-22 10:39] LABS: ALT 7 U/L (16-63); AST 14 U/L (15-37); Albumin 3.8 g/dL (3.4-5.0); Alkaline Phosphatase 57 U/L (46-116); BUN 27 mg/dL (7-18); CREATININE 1.7 mg/dL (0.70-1.30); Calcium 8.8 mg/dL (8.5-10.1); Chloride 107 mmol/L (98-107); Estimated GFR 39.26 (mL/min/1.73m2); Glucose 104 mg/dL (74-106); Potassium 4.7 mmol/L (3.5-5.1); Sodium 141 mmol/L (136-145); Total Protein 6.1 g/dL (6.4-8.2); Troponin I < 50 ng/L (<or=60)
[2023-05-22 10:41] LABS: Absolute Lymphocyte Count 4.76 10^3/uL (1.2-3.4); Absolute Neutrophil Count 4.56 10^3/uL (1.2-6.7)
[2023-05-22 10:43] LABS: Diff Comment Diff Reviewed; RBC Morphology Normal
[2023-05-22 11:43] LABS: Bilirubin Negative (Negative); Blood Negative (Negative); Clarity Clear (Clear); Glucose Negative (Negative); Ketones Negative (Negative); Leukocyte Esterase Negative (Negative); Nitrite Negative (Negative); Specific Gravity 1.015 (1.005-1.025); Urobilinogen 0.2 mg/dL (Up to 0.2)
[2023-05-22 11:52] LABS: Bacteria Few HPF (Negative); Crystals Negative HPF (Negative); Epithelial Cells Rare HPF (Negative); Mucus Trace (Negative); Other Cells Negative (Negative); RBC 0-2 HPF (0-2)
[2023-05-22 11:53] LABS: C & S Indicated? No
[2023-05-22 11:54] LABS: Casts 5-10 Hyaline LPF (Negative)
[2023-05-22 13:22] LABS: Troponin I < 50 ng/L (<or=60)
[2023-05-22 16:01] LABS: Source Nasal/Nares
[2023-05-22 16:47] LABS: COVID-19 PCR Negative (Negative)
--- NOTE | 2023-05-22 17:51 | HPE_ITS ---
Date of service: 05/22/23 Time of Service: 17:30 Assessment and Plan Assessment and plan (1) Weakness: Status: Acute Assessment and plan: Was feeling well this morning, went to PT and after PT felt weak. He was unable to ambulate independently and was brought to the ED Continued to feel weak and had orthostatic hypotension - rec'd 2 litres LR -LR 150 ml/h -Midodrine 2.5 mg TID -monitor VS -PT consult (2) Acute renal injury: Status: Acute Assessment and plan: Creatinine 1.7 Hold nephrotoxic drugs Decreased from 10 mg BID to 5 mg BID IVF Check labs in am (3) Orthostatic hypotension: Status: Acute Assessment and plan: As above Check VS every 4 h, up with assist only Consider autonomic insufficiency in setting of Parkinson's Disease IVF 150 ml/h lactated ringers (4) Parkinson disease: Status: Chronic Assessment and plan: Stable, continue carbidopa-levodopa (5) Elevated cholesterol: Status: Chronic Assessment and plan: Stable, continue Simvastatin (6) Dementia: Status: Chronic Assessment and plan: Stable, continue Memantine Decreased from 10 mg BID to 5 mg BID in setting of CARLO (7) BPH (benign prostatic hyperplasia): Status: Chronic Assessment and plan: Stable, continue fosamax and saw palmetto (8) Alzheimer disease: Status: Chronic Assessment and plan: Stable, continue Memantine Decreased from 10 mg BID to 5 mg BID in setting of CARLO (9) HTN (hypertension): Status: Chronic Assessment and plan: Hold Ramipril in setting of hypotension (10) Discharge planning issues: Status: Acute Assessment and plan: Home when medically stable, suspect that will be tomorrow (11) DVT prophylaxis: Status: Acute Assessment and plan: TEDS Discussed with Dr Rosenbaum History of Present Illness History of Present Illness Chief Complaint: Weakness Narrative: This is an 82-year-old male patient with past medical history of Parkinson's disease, dementia, aortic stenosis, and hypertension who presented to the [facility] ED with complaint of weakness.? Patient went to physical therapy, as he usually does, earlier today and when he finished physical therapy and upon getting home his helping him from the car to the house. He is usually ambulatory independently. He denied any chest pain or shortness of breath.? No fevers or chills.? No cough or cold.? He denied any leg pain or weakness.?He, according to his , had a substantial noon meal. There were no falls or injuries. In the ED labs WBC 9.91, Hgb 12, HCT 37.5, sodium 141, BUN 27, Creatinine 1.7, Troponin negative x 2. Urine negative for infection. Chest xray - no acute findings as read by the radiologist. EKG no acute ischemic changes. He was given 2 litres of fluid in the ED and his hypotension resolved, however when orthostatic vital signs were taken he continued to have hypotension and feeling weak with standing. Covid is pending. He is placed on observation status on the medical floor for further testing and treatment. He is DNR/DNI. Review of Systems All systems reviewed & are unremarkable except as noted in HPI and below PFSH All Active Problems (Updated 05/22/23 @ 18:22 by Winnie Collier NP) Acute renal injury (Acute) DVT prophylaxis (Acute) Discharge planning issues (Acute) Weakness (Acute) Parkinson disease (Chronic) Orthostatic hypotension (Acute) Dementia (Chronic) Hallucinations (Acute) Alzheimer disease (Chronic) Knee pain, right (Acute) Systolic murmur (Acute) Osteoporosis (Chronic) Parkinsons disease (Chronic) Aortic stenosis (Chronic) Painful total knee replacement, right (Acute) Incarcerated right inguinal hernia (Acute) BPH (benign prostatic hyperplasia) (Chronic) HTN (hypertension) (Chronic) Elevated cholesterol (Chronic) Surgical History History of lumbar laminectomy multiple History of total right knee replacement (TKR) (~2019) Hx of hand surgery left S/P right inguinal hernia repair Status post total knee replacement, left Social History Smoking/Tobacco Use Status: Never Smoking risk assessment performed?: Yes Alcohol Intake: current Alcohol Intake frequency: 0-2 drinks per day Alcohol type: wine Drug use: Never Substance use type: does not use Household members: spouse Housing: house Number of Children: 2 Education Level: college 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 What is your relationship status?: Panel score (0-1 are the most socially isolated patients): 1 Do you feel safe at home: Yes Do you feel safe in your relationship?: Yes Additional Social history: unable to assess privately Meds Allergies and Home Medications Allergies Allergy/AdvReac Type Severity Reaction Status Date / Time No Known Allergies Allergy Verified 05/22/23 10:11 Home Medications Medication Instructions Recorded Confirmed Type alendronate 70 mg tablet (Fosamax) 70 mg PO QWEEK 07/06/21 05/22/23 History aspirin 81 mg tablet,delayed 81 mg PO DAILY 07/06/21 05/22/23 History release (Adult Aspirin Regimen) multivitamin 1 tab PO DAILY 07/06/21 05/22/23 History ramipril 2.5 mg capsule 2.5 mg PO DAILY 07/06/21 05/22/23 History simvastatin 20 mg tablet 20 mg PO DAILY 07/06/21 05/22/23 History saw palmetto 450 mg capsule 450 mg PO BID 01/03/22 05/22/23 History calcium citrate malate 250 2 tab PO DAILY 05/14/22 05/22/23 History mg-vitamin D3 2.5 mcg (100 unit) tablet amoxicillin 500 mg capsule 2,000 mg PO .COMPLEX PRN 08/23/22 05/22/23 History carbidopa 25 mg-levodopa 250 mg 1 tab PO TID #270 tabs 11/19/22 05/22/23 Rx tablet memantine 10 mg tablet 10 mg PO BID #180 tabs 11/19/22 05/22/23 Rx Exam Const General: cooperative, healthy appearing, no acute distress and well groomed Orientation: alert and awake [facility] Head: normocephalic Ears: hearing grossly normal bilaterally and TM's normal bilaterally General nose exam: external nose normal and nares normal Face and sinus: normal facial exam, face symmetric and no tenderness Mouth: oral mucosae normal and moist mucous membranes Throat: posterior oropharynx normal Eyes Visual Contreras: normal visual contreras by confrontation Alignment and Position: alignment normal Periorbital: periorbital findings normal Eyelids: eyelids normal Sclera: sclerae normal Pupils: PERRL EOM: EOM intact bilaterally Neck Neck: normal visual inspection and full ROM Resp Effort & Inspection: normal respiratory effort and able to speak in complete sentences Auscultation: clear to auscultation bilaterally Cardio Rate: regular rate Rhythm: regular rhythm Heart Sounds: S1 normal and S2 normal Back/Spine/Pelvis Cervical Spine: cervical ROM normal and No cervical muscular tenderness Thoracic/Lumbar Spine: No thoracic spinal tenderness and No lumbar spinal tenderness Neuro General: patient alert, patient awake, tone normal, moves all extremities and CN's II-XI intact bilaterally Speech: speech normal Motor: muscle tone normal throughout Sensory Exam: no sensory deficits noted Results Labs 05/22/23 10:13 05/22/23 10:13 Labs: Laboratory Results - last 24 hr 05/22/23 05/22/23 05/22/23 10:13 10:13 11:38 WBC 9.91 RBC 3.76 L Hgb 12.0 L Hct 37.5 L MCV 100 H MCH 31.9 MCHC 32.0 RDW 12.5 Plt Count 139 MPV 9.8 Immature Gran % 0.0 Neutrophils % 46.0 Lymphocytes % 48.0 Monocytes % 4.0 Eosinophils % 1.0 Basophils % 1.0 Nucleated RBC % 0.0 Absolute Neutrophils 4.56 Absolute Lymphocytes 4.76 H Absolute Monocytes 0.40 Absolute Eosinophils 0.10 Absolute Basophils 0.10 RBC Morphology Normal Sodium 141 Potassium 4.7 Chloride 107 Carbon Dioxide 27.0 Anion Gap 7.0 BUN 27 H Creatinine 1.7 H Est GFR (CKD-EPI 2020) 39.26 Glucose 104 Calcium 8.8 Magnesium 2.0 Total Bilirubin 1.0 AST 14 L ALT 7 L Alkaline Phosphatase 57 Troponin I < 50 Total Protein 6.1 L Albumin 3.8 Urine Color Yellow Urine Clarity Clear Urine pH 7.0 Ur Specific [place] 1.015 Urine Protein 100 H Urine Ketones Negative Urine Blood Negative Urine Nitrite Negative Urine Bilirubin Negative Urine Urobilinogen 0.2 Ur Leukocyte Esterase Negative Urine RBC 0-2 Urine WBC 3-5 Ur Epithelial Cells Rare Urine Crystals Negative Urine Bacteria Few Urine Casts 5-10 Hyaline Urine Mucus Trace Urine Other Negative Ur Culture Indicated? No Urine Glucose Negative COVID-19 Source SARS-CoV-2 (PCR) 05/22/23 05/22/23 12:50 15:46 WBC RBC Hgb Hct MCV MCH MCHC RDW Plt Count MPV Immature Gran % Neutrophils % Lymphocytes % Monocytes % Eosinophils % Basophils % Nucleated RBC % Absolute Neutrophils Absolute Lymphocytes Absolute Monocytes Absolute Eosinophils Absolute Basophils RBC Morphology Sodium Potassium Chloride Carbon Dioxide Anion Gap BUN Creatinine Est GFR (CKD-EPI 2020) Glucose Calcium Magnesium Total Bilirubin AST ALT Alkaline Phosphatase Troponin I < 50 Total Protein Albumin Urine Color Urine Clarity Urine pH Ur Specific [place] Urine Protein Urine Ketones Urine Blood Urine Nitrite Urine Bilirubin Urine Urobilinogen Ur Leukocyte Esterase Urine RBC Urine WBC Ur Epithelial Cells Urine Crystals Urine Bacteria Urine Casts Urine Mucus Urine Other Ur Culture Indicated? Urine Glucose COVID-19 Source Nasal/Nares SARS-CoV-2 (PCR) Negative Last Vital Signs Temp 36.6 C 05/22/23 17:09 Pulse 48 L 05/22/23 17:37 Resp 14 05/22/23 17:09 BP 162/71 H 05/22/23 17:37 Pulse Ox 95 05/22/23 17:09 Time Spent Time spent with Patient: 55-74 minutes Time was spent: preparing to see the patient(eg.review tests), obtaining and/or reviewing separately otained hiistory, ordering medications,tests, procedures, referring, communicating with other health infant childcare provider, indepentently interpreting results, counseling the patient and care coordination
[2023-05-22] MEDS: Lactated Ringers 1,000 ML 150 ML IV (18:38)
[2023-05-22] MEDS: Midodrine 2.5 MG TAB PO (19:03)
[2023-05-22] MEDS: Simvastatin 20 MG TAB PO (19:03)
[2023-05-22] MEDS: QUEtiapine 25 MG TAB 12.5 MG PO (19:04)
[2023-05-22] MEDS: Memantine 5 MG TAB PO (19:04)
[2023-05-22] MEDS: OLANZapine 10 MG VIAL 5 MG IM (22:47)
[2023-05-22] MEDS: Water,Injection,Sterile 10 ML VIAL (22:47)
--- NOTE | 2023-05-22 22:58 | NUR.NOTE ---
Nursing Note: Pt restless and confused at start of shift, only oriented to self. Pt able to be reoriented and scheduled PO medicaitons able to be administered per DEC. Pt then became increasingly agitated, began to get out of bed and refused staff assistance. Pt became verbally aggressive and yelled at staff repeatedly, stating Get out of my house! I don't need you!. Pt unable to be redirected. Pt removed continuous telemetry monitoring, became combative and was attempting to hit staff. CC notified, made aware, PO quetiapine ordered per DEC. Pt reapproached after a period of time with medication, pt refused and began to escalate further again. Pt removed gown, and was up on the side of the bed insistent he go upstairs and get Anusha. Get out of my house!. CC again notified of refusal and continued agitation, made aware, IM olanzepine ordered and administered per DEC. Will continue to monitor closely, bed alarms on, call harmon within reach.
--- NOTE | 2023-05-22 23:48 | SUR.INTRAOP ---
IV Insertion Documentation 05/22/23 at 2345 this 20 gauge upper left arm IV discontinued. 2030 Initially insertion was made with 3 attempts, 2 prior attempts with 22g catheters. The arm was cleansed extensively with chlorahexadine and alcohol. a tourniquet was applied. positive blood return initially positive. with 20g insertion. Patient was bending his arm after securement with tagaderm. shortly after insertion, despite positive blood return. The IV catheter did not flush with normal saline. no signs of redness or bubbling near the insertion site. 2345: After IM zyprexa, the patient was calm. IV discontinued homeostasis occurred within expected time frame. the patient now resting calmly in bed after linen and breif changed.
[2023-05-23] MEDS: Lactated Ringers 1,000 ML 150 ML IV ×2 (01:22→08:21)
[2023-05-23 06:45] LABS: HCT 35.2 % (40.0-50.0); HGB 11.4 g/dL (13.5-17.5); MCH 32.7 pg (27.0-33.0); MCHC 32.4 % (32.0-36.0); MCV 101 fL (80-95); Platelet Count 122 10^3/uL (130-400); RBC 3.49 10^6/uL (4.36-5.78); RDW 12.5 % (11.8-14.1); RDW-SD 46.5 fL; WBC 8.79 10^3/uL (4.4-10.8)
[2023-05-23 07:06] LABS: Anion Gap 4.5 mmol/L (3-11); BUN 24 mg/dL (7-18); CO2 28.5 mmol/L (21.0-32.0); CREATININE 1.1 mg/dL (0.70-1.30); Calcium 8.3 mg/dL (8.5-10.1); Chloride 112 mmol/L (98-107); Estimated GFR 66.19 (mL/min/1.73m2); Glucose 79 mg/dL (74-106); Potassium 4.3 mmol/L (3.5-5.1); Sodium 145 mmol/L (136-145)
[2023-05-23 07:29] LABS: Absolute Eosinophil Count 0.35 10^3/uL (0.0-0.7); Absolute Lymphocyte Count 6.07 10^3/uL (1.2-3.4); Absolute Monocyte Count 0.09 10^3/uL (0.1-0.8); Absolute Neutrophil Count 2.29 10^3/uL (1.2-6.7); Atypical Lymphocytes % 0; Bands % 0
[2023-05-23 07:30] LABS: Diff Comment Manual Differential
--- NOTE | 2023-05-23 08:00 | RT.EKG_ITS ---
APPROVED REPORT Exam: Resting ECG Reason for Exam: bradycardia, 1st degree AV block Patient Location: I HR:41 bpm ECG Measurements Heart Rate 41 AXIS HI 332 P 12 QRSd 99 QRS 29 QT 488 T 94 QTc 403 Conclusion Sinus bradycardia...rate< 50 Prolonged HI interval...HI >230, V-rate 30- 49 Nonspecific T abnormalities, lateral leads...T <-0.10mV, I aVL V5 V6
[2023-05-23] MEDS: Aspirin E.C. 81 MG TABEC PO (08:20)
[2023-05-23] MEDS: Multivitamin TAB 1 TAB PO (08:20)
[2023-05-23] MEDS: Memantine 5 MG TAB PO (08:20)
[2023-05-23] MEDS: Midodrine 2.5 MG TAB PO (08:20)
--- NOTE | 2023-05-23 09:15 | PDOC.CMIN ---
Date of service: 05/23/23 Time of Service: 09:15 Care Management Initial Assmt Initial Assessment REASON FOR HOSPITALIZATION:: dehydration PREVIOUS FUNCTIONAL STATUS/SOCIAL/FAMILY SUPPORTS:: Jag lives in [facility] with his Anusha. ADVANCE DIRECTIVES:: none on file Has patient been provided with info about the portal/API?: Yes Did the patient sign up for the portal?: Yes CODE STATUS:: DNR/DNI INSURANCE COVERAGE / FINANCIAL ISSUES:: Medicare BC/BS out of state PRIMARY CARE PHYSICIAN:: Homer Nolan POTENTIAL DISCHARGE NEEDS:: follow up with PCP and plan of care PATIENT/FAMILY EDUCATION NEEDS:: Review discharge instructions, activity, limitations, follow up plan, discuss [employer] TRANSPORTATION:: via private vehicle PLAN:: Anticipate Jag will discharge home with no new services. He will follow up with his community providers and plan of care and transport with family. CM will follow and assess for discharge needs. PFSH All Active Problems (Updated 05/22/23 @ 18:22 by Winnie Collier NP) Acute renal injury (Acute) DVT prophylaxis (Acute) Discharge planning issues (Acute) Weakness (Acute) Parkinson disease (Chronic) Orthostatic hypotension (Acute) Dementia (Chronic) Hallucinations (Acute) Alzheimer disease (Chronic) Knee pain, right (Acute) Systolic murmur (Acute) Osteoporosis (Chronic) Parkinsons disease (Chronic) Aortic stenosis (Chronic) Painful total knee replacement, right (Acute) Incarcerated right inguinal hernia (Acute) BPH (benign prostatic hyperplasia) (Chronic) HTN (hypertension) (Chronic) Elevated cholesterol (Chronic) Surgical History History of lumbar laminectomy multiple History of total right knee replacement (TKR) (~2019) Hx of hand surgery left S/P right inguinal hernia repair Status post total knee replacement, left Social History Smoking/Tobacco Use Status: Never Smoking risk assessment performed?: Yes Alcohol Intake: current Alcohol Intake frequency: 0-2 drinks per day Alcohol type: wine Drug use: Never Substance use type: does not use Household members: spouse Housing: house Number of Children: 2 Education Level: college 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
[2023-05-23 09:35] VITALS: BP 106/62; BP 114/58; BP 125/60; PULSE 55; PULSE 62; PULSE 86; RESP 17; TEMP 35.3; O2SAT 96
--- NOTE | 2023-05-23 11:14 | DSE_ITS ---
Date of service: 05/23/23 Time of Service: 11:14 DS: Diagnosis Discharge Diagnosis (1) Weakness: Status: Acute (2) Acute renal injury: Status: Acute (3) Orthostatic hypotension: Status: Acute (4) Parkinson disease: Status: Chronic (5) Elevated cholesterol: Status: Chronic (6) Dementia: Status: Chronic (7) BPH (benign prostatic hyperplasia): Status: Chronic (8) Alzheimer disease: Status: Chronic (9) HTN (hypertension): Status: Chronic (10) Discharge planning issues: Status: Acute (11) DVT prophylaxis: Status: Acute (12) Autonomic dysfunction: Status: Acute Discharge Plan Disposition Patient Disposition: Home Condition: Improving Discharge Details Reason For Visit: Dehydration, Orthostatic Hypotension Admit Date/Time: 05/22/23 15:32 Admit Provider: Jordyn Rosenbaum Attending Provider: Jordyn Rosenbaum Primary Care Provider: Homer Nolan [facility] Hospital Course: This is an 82-year-old male patient with past medical history of Parkinson's disease, dementia, aortic stenosis, and hypertension who presented to the [facility] E D with complaint of weakness.? Patient went to physical therapy, as he usually does,? earlier today and when he finished physical therapy and upon getting home his helping him from the car to the house. He is usually ambulatory independently. He denied any chest pain or shortness of breath.? No fevers or chills.? No cough or cold.? He denied any leg pain or weakness.?He, according to his , had a substantial noon meal.? There were no falls or injuries. In the ED labs WBC 9.91, Hgb 12, HCT 37.5, sodium 141, BUN 27, Creatinine 1.7, Troponin negative x 2.? Urine negative for infection.? Chest xray - no acute findings as read by the radiologist. EKG no acute ischemic changes. He was given 2 litres of fluid in the ED and his hypotension resolved, however when orthostatic vital signs were taken he continued to have hypotension and feeling weak with standing. Covid is negative. He was placed on observation status on the medical floor for further testing and treatment. He is DNR/DNI. He was started on midoddrine 2.5 mg TID and given fluid boluses. He had some agression and sundowning that resolved with oral seroquel and one dose later in the evening of Zyprexa IM. He improved over night and no longer had orthostatic hypotension, did not complain of feeling weak. Labs stable. He was discharged to home with his isis. He was told to hold Rimapril untill follow up with PCP, drink plenty of fluids and have someone with him when he gets up. ? Home Meds and New Rx's Prescriptions: New midodrine 2.5 mg Tablet 2.5 mg PO TID Qty: 90 0RF Continued carbidopa-levodopa 25-250 mg tablet 1 tab PO TID Qty: 270 3RF Rx Instructions: Take at 8am, 1pm, and 6pm memantine 10 mg tablet 10 mg PO BID Qty: 180 3RF saw palmetto 450 mg capsule 450 mg PO BID Rx Instructions: give with food (meal/snack) amoxicillin 500 mg capsule 2,000 mg PO .COMPLEX PRN Patient Comments: prior to dental appointments Rx Instructions: 2,000 mg orally ; PRN; alendronate [Fosamax] 70 mg tablet 70 mg PO QWEEK simvastatin 20 mg tablet 20 mg PO DAILY aspirin [Adult Aspirin Regimen] 81 mg tablet,delayed release (DR/EC) 81 mg PO DAILY Patient Comments: Unsure dose multivitamin Tablet 1 tab PO DAILY calcium citrate malate-vit D3 250 mg-2.5 mcg (100 unit) tablet 2 tab PO DAILY Discontinued ramipril 2.5 mg capsule 2.5 mg PO DAILY Discharge Instructions Instructions: Midodrine (By mouth), Dehydration (DC), Hypotension (DC) Additional Instructions: Start Midodrine 2.5 mg three times a day a day. Get up slowly only with assistance. Drink plenty of fluids. Hold Ramipril until instructed to resume by PCP Stand Alone Forms: Nursing Discharge Form Referrals: Homer Nolan [Primary Care Provider] - 06/02/23 11:00 am (1-2 weeks - follow up; dehydration and orthostatic hypotension - started on Midodrine 2.5 mg three times a day) Activity:: Activity as Tolerated Equipment/Supplies:: No Equipment Needed Diet:: As Tolerated Discharge Orders Discharge Orders: Discharge Order (Routine); Ordered 05/23/23 Ordered By: Winnie Collier Discharge Data Discharge Date/Time-TO BE ENTERED AT DEPARTURE: 05/23/23 13:04 Discharge Comment: Off unit via WC w/ to home DS: Summary Time Spent with Patient providing and/or coordinating discharge services: Greater than 30 minutes Status at Discharge Functional status at discharge: uses cane/walker Overall status at discharge: patient is back to baseline Mental Status: other (baseline ) Speech and Movement: speech and movement normal Mood: anxious mood and other (baseline ) Affect: anxious affect Exam Const General: cooperative, healthy appearing, no acute distress and well groomed Orientation: alert and awake HENDC Head: normocephalic Ears: hearing grossly normal bilaterally and TM's normal bilaterally General nose exam: external nose normal and nares normal Face and sinus: normal facial exam, face symmetric and no tenderness Mouth: oral mucosae normal and moist mucous membranes Throat: posterior oropharynx normal Eyes Visual Contreras: normal visual contreras by confrontation Alignment and Position: alignment normal Periorbital: periorbital findings normal Eyelids: eyelids normal Sclera: sclerae normal Pupils: PERRL EOM: EOM intact bilaterally Neck Neck: normal visual inspection and full ROM Resp Effort & Inspection: normal respiratory effort and able to speak in complete sentences Auscultation: clear to auscultation bilaterally Cardio Rate: regular rate Rhythm: regular rhythm Heart Sounds: S1 normal and S2 normal Back/Spine/Pelvis Cervical Spine: cervical ROM normal and No cervical muscular tenderness Thoracic/Lumbar Spine: No thoracic spinal tenderness and No lumbar spinal tenderness Neuro General: patient alert, patient awake, tone normal, moves all extremities and CN's II-XI intact bilaterally Speech: speech normal Motor: muscle tone normal throughout Sensory Exam: no sensory deficits noted Psych Mental Status: other (baseline ) Speech and Movement: speech and movement normal Mood: anxious mood and other (baseline ) Affect: anxious affect DS: Data Vitals/I&O Vitals and I&O: Vital Signs Temperature 35.3 C L 05/23/23 09:35 Temperature Source Tympanic 05/23/23 09:35 Pulse 55 L 05/23/23 09:35 Pulse Rhythm Regular 05/23/23 08:55 Pulse 79 05/22/23 16:01 Respiratory Rate 17 05/23/23 09:35 Respiratory Effort Normal, Non-Labored 05/23/23 08:55 Respiratory Depth Normal 05/23/23 08:55 Respiratory Pattern Normal 05/23/23 08:55 Blood Pressure 125/60 05/23/23 09:35 Blood Pressure Mean 87 05/22/23 15:45 Blood Pressure Position Supine 05/22/23 09:43 Pulse Oximetry 96 05/23/23 09:35 Oxygen Delivery Method Room Air 05/23/23 09:35 Oxygen Flow Rate 0 05/23/23 09:35 Pain Level 0 05/22/23 23:35 Comment Pt sleeping at this time. RN asked that I do vitals while patient is awake. 05/23/23 03:25 Intake & Output 05/22/23 05/22/23 05/23/23 11:59 23:59 11:59 Intake Total 999 / 1999 999 / 1999 Output Total 150 / 150 400 / 400 Balance 1000 / 1850 850 / 1850 1600 / 1600 Weight 63.503 kg 60.6 kg Intake: IV 999 Output: Urine 150 / 150 400 / 400 Other: Urine Color Yellow Yellow Urine Appearance Cloudy Clear Urine Odor Normal Normal Voiding Methods Urinal Urinal Diaper Incontinent Data Completed and Pending Labs on day of discharge: Labs from last 24 hours 05/23/23 05/23/23 05/22/23 06:30 06:30 18:14 WBC 8.79 RBC 3.49 L Hgb 11.4 L Hct 35.2 L MCV 101 H MCH 32.7 MCHC 32.4 RDW 12.5 Plt Count 122 L MPV 10.0 Immature Gran % 0.0 Neutrophils % 26.0 Band Neutrophils % 0 Lymphocytes % 69.0 Atypical Lymphs % 0 Monocytes % 1.0 Eosinophils % 4.0 Basophils % 0.0 Nucleated RBC % 0.0 Absolute Neutrophils 2.29 Absolute Lymphocytes 6.07 H Absolute Monocytes 0.09 L Absolute Eosinophils 0.35 Absolute Basophils 0.00 Sodium 145 Potassium 4.3 Chloride 112 H Carbon Dioxide 28.5 Anion Gap 4.5 BUN 24 H Creatinine 1.1 Est GFR (CKD-EPI 2020) 66.19 Glucose 79 Calcium 8.3 L Magnesium 2.0 Troponin I Urine Color Urine Clarity Urine pH Ur Specific [place] Urine Protein Urine Ketones Urine Blood Urine Nitrite Urine Bilirubin Urine Urobilinogen Ur Leukocyte Esterase Urine RBC Urine WBC Ur Epithelial Cells Urine Crystals Urine Bacteria Urine Casts Urine Mucus Urine Other Ur Culture Indicated? Urine Glucose COVID-19 Source Cancelled SARS-CoV-2 (PCR) Cancelled 05/22/23 05/22/23 05/22/23 15:46 12:50 11:38 WBC RBC Hgb Hct MCV MCH MCHC RDW Plt Count MPV Immature Gran % Neutrophils % Band Neutrophils % Lymphocytes % Atypical Lymphs % Monocytes % Eosinophils % Basophils % Nucleated RBC % Absolute Neutrophils Absolute Lymphocytes Absolute Monocytes Absolute Eosinophils Absolute Basophils Sodium Potassium Chloride Carbon Dioxide Anion Gap BUN Creatinine Est GFR (CKD-EPI 2020) Glucose Calcium Magnesium Troponin I < 50 Urine Color Yellow Urine Clarity Clear Urine pH 7.0 Ur Specific [place] 1.015 Urine Protein 100 H Urine Ketones Negative Urine Blood Negative Urine Nitrite Negative Urine Bilirubin Negative Urine Urobilinogen 0.2 Ur Leukocyte Esterase Negative Urine RBC 0-2 Urine WBC 3-5 Ur Epithelial Cells Rare Urine Crystals Negative Urine Bacteria Few Urine Casts 5-10 Hyaline Urine Mucus Trace Urine Other Negative Ur Culture Indicated? No Urine Glucose Negative COVID-19 Source Nasal/Nares SARS-CoV-2 (PCR) Negative PFSH All Active Problems (Updated 05/23/23 @ 11:46 by Winnie Collier NP) Autonomic dysfunction (Acute) Acute renal injury (Acute) DVT prophylaxis (Acute) Discharge planning issues (Acute) Weakness (Acute) Parkinson disease (Chronic) Orthostatic hypotension (Acute) Dementia (Chronic) Hallucinations (Acute) Alzheimer disease (Chronic) Knee pain, right (Acute) Systolic murmur (Acute) Osteoporosis (Chronic) Parkinsons disease (Chronic) Aortic stenosis (Chronic) Painful total knee replacement, right (Acute) Incarcerated right inguinal hernia (Acute) BPH (benign prostatic hyperplasia) (Chronic) HTN (hypertension) (Chronic) Elevated cholesterol (Chronic) Surgical History History of lumbar laminectomy multiple History of total right knee replacement (TKR) (~2019) Hx of hand surgery left S/P right inguinal hernia repair Status post total knee replacement, left Social History Smoking/Tobacco Use Status: Never Smoking risk assessment performed?: Yes Alcohol Intake: current Alcohol Intake frequency: 0-2 drinks per day Alcohol type: wine Drug use: Never Substance use type: does not use Household members: spouse Housing: house Number of Children: 2 Education Level: college 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
[2023-05-23 11:26] VITALS: BP 126/65; PULSE 48; RESP 16; TEMP 35.9; O2SAT 92
[2023-05-23 12:18] VITALS: PULSE 55
--- NOTE | 2023-05-23 15:01 | CMPROGNOTE_ITS ---
Date of service: 05/23/23 Time of Service: 15:01 Care Management Progress Note Progress Note Text Progress Note Text: S/): Jag was sitting up in a chair when CM met with him. He informed CM that he was going home and his Anusha arrived at that time. Anusha stated that things were going well at home, for the most past, and that they are managing. They denied the need for any services at this time. CM did encourage Anusha to reach out to their PCP practice, should issues arise. CM also suggested that the [place] [facility] might be helpful. P: Jag will discharge home with no new services. He will follow up with his PCP and transport with his Anusha.
--- NOTE | 2023-05-23 16:51 | NT_ITS ---
PT Notes Visit Reasons: Dehydration, Orthostatic Hypotension Patient discharged at noon today with resumption of HH PT services. No PT ser vices were provided in the hospital for this epsiode of care.
--- NOTE | 2023-05-23 16:51 | PT.INNT ---
PT Notes Visit Reasons: Dehydration, Orthostatic Hypotension Patient discharged at noon today with resumption of PT services. No PT services were provided in the hospital for this epsiode of care.
== END 2023-05-23 13:04 | disposition home or self-care (01) ==
LOC: ER 15:26 → MS 16:35
PROVIDERS: Nurse Practitioner Family; Admitting Provider Internal Medicine; Emergency Provider Emergency Medicine Emergency Medical Services; PCP Physician Assistant; Visit Provider Internal Medicine
DX: R53.1 Weakness (principal); N17.9 Acute kidney failure, unspecified; I95.1 Orthostatic hypotension; R00.1 Bradycardia, unspecified; G20 Parkinson's disease; E78.00 Pure hypercholesterolemia, unspecified; N40.0 Benign prostatic hyperplasia without lower urinary tract symptoms; F02.80 Dementia in other diseases classified elsewhere, unspecified severity, without behavioral disturbance, psychotic disturbance, mood disturbance, and anxiety; G30.9 Alzheimer's disease, unspecified; I10 Essential (primary) hypertension; Z66 Do not resuscitate; M81.0 Age-related osteoporosis without current pathological fracture; R01.1 Cardiac murmur, unspecified; I35.0 Nonrheumatic aortic (valve) stenosis; Z79.899 Other long term (current) drug therapy; Z79.82 Long term (current) use of aspirin
CPT/HCPCS: 36415; 80048; 80053; 87635; 93005; 96360; 96361; 99291; 71045; 81003; 81015; 83735; 84484; 85025; 93010; 99222; 99239; G0378

== ENCOUNTER 2023-06-11 08:44 | Inpatient (IN) | payer MEDICARE, BC, SELFPAY ==
[2023-06-11] VITALS (54 sets, daily range): BP systolic 57–220; BP diastolic 14–209; PULSE 48–228; RESP 14–45; TEMP 37–37.9; O2SAT 61–94
--- NOTE | 2023-06-11 08:45 | DI.CT_ITS ---
Exam(s) CT HEAD CERVICAL SPINE WO EXAM: CT HEAD CERVICAL SPINE WO CLINICAL HISTORY: Fall, Head Injury, AMS. TECHNIQUE: Imaging Protocol: Axial computed tomography images with coronal and sagittal reformatted images were created and reviewed COMPARISON: CT CT HEAD CERVICAL SPINE WO from 11/12/[address] CHEST/ABD/PEL WO from 06/11/2023 FINDINGS: The examination is limited due to patient motion artifact. CT Head: Ventricles and Extra axial spaces: Normal in size and morphology for the patient's age. Hemorrhage: None. Cerebral parenchyma: There is no evidence of an acute territorial infarct. There are small vessel is chemic disease present. Midline shift: None. Brainstem/Cerebellum: Normal. Calvarium: Normal. Visualized Paranasal sinuses/Mastoids: There is complete opacification of the right maxillary sinus w ith mild wall thickening suggesting chronic sinus disease. There is a small amount of fluid seen in the left maxillary sinus. The remaining visualized paranasal sinuses are clear as are the mastoid ai r cells. Soft Tissues: Unremarkable. CT Cervical Spine: Examination limited by patient motion and patient positioning. Bones: No acute fracture or subluxation. There is no evidence of a basilar skull fracture. Extensive degenerative changes are seen in the spine particularly involving the left facets. Soft Tissues: Unremarkable. Lung Apices: Clear. IMPRESSION: 1. No acute intracranial process. 2. No definite acute fracture or subluxation in the cervical spine. 3. Examination was limited by patient motion artifact and patient positioning. 4. There is extensive degenerative change seen in the cervical spine particularly involving the left facets. 5. Findings were discussed with the emergency department at 11:02 a.m. on 06/11/2023. RADIATION DOSE DELIVERED: Total DLP DATA REPOSITORY: All CT scans at this facility are submitted to the National Radiology Data Registry (NRDR) Dose Index Registry (DIR) with the [employer] ([employer]). RADIATION OPTIMIZATION: All CT scans at this facility use at least one of these dose optimization te chniques: automated exposure control; mA and/or kV adjustment per patient size (includes targeted exa ms where dose is matched to clinical indication); or iterative reconstruction.
--- NOTE | 2023-06-11 08:45 | RT.EKG_ITS ---
APPROVED REPORT Exam: Resting ECG Reason for Exam: syncope Patient Location: E HR:86 bpm ECG Measurements Heart Rate 86 AXIS CA 290 P 207 QRSd 103 QRS 79 QT 359 T -33 QTc 430 Conclusion Sinus or ectopic atrial rhythm...P axis (-45,135) Prolonged CA interval...CA >220, V-rate 50- 90 Inferior infarct, age indeterminate...Q>35mS, T neg, II III aVF Consider anterolateral infarct...Q >30mS, I aVL V3-V6,I,aVL
--- NOTE | 2023-06-11 08:56 | DI.CT_ITS ---
Exam(s) CT CHEST/ABD/PEL WO EXAM: CT CHEST/ABD/PEL WO CLINICAL HISTORY: Trauma, GI bleed, vomiting TECHNIQUE: Imaging Protocol: Axial computed tomography images with coronal and sagittal reformatted images were created and reviewed COMPARISON: CT CT HEAD CERVICAL SPINE WO from 11/12/2022 FINDINGS: The examination is limited due to patient motion artifact. CHEST: Tracheobronchial tree: Patent where visualized. Pulmonary parenchyma: Small ill-defined ground-glass opacities are seen in the right upper, left lowe r and right lower lobe. There is an infiltrate seen in the right lower lobe. No architectural disto rtion. Mediastinum and Ml: No dominant adenopathy or fluid collection. The distal half of the esophagus is fluid-filled. Thyroid gland: Unremarkable. Pleura: No effusion or pneumothorax. Heart: The heart is not dilated. Coronary artery calcifications are present. No pericardial effusion . Aorta: Thoracic aorta non-dilated. Atherosclerosis is present. Lymph nodes: Within normal limits. Bones:Within normal limits for the patient's age. Soft tissues: Unremarkable. ABDOMEN: Liver: Normal density. There is a 1 cm cyst in the caudal aspect of the liver. Gallbladder and Biliary Tract: No radiodense calculus or dilation. Pancreas: Normal density, no abnormal calcifications or inflammatory process. Spleen: Normal. Adrenals: No masses seen. Kidneys: Normal size, contour and axis. Right nephrolithiasis. No hydronephrosis. No masses seen. Abdominal Aorta: Abdominal portion non-dilated. Atherosclerosis. Bowel: There are dilated fluid-filled loops of small bowel. The distal small bowel is of normal kimberly renee. The colon is of normal caliber. There is a large amount of stool seen in the rectum which may reflect impaction. There is no bowel wall thickening. There is bowel wall thickening seen in the ce cum and ascending colon. There is marked fluid distention of the stomach. There is no pneumatosis. No evidence of appendicitis. There is diverticulosis seen in the sigmoid colon. Peritoneal Cavity: There is a small amount of fluid in the pericolic gutters. No free air. Lymph Nodes: Within normal limits. Bones: Postsurgical changes are seen in the lumbosacral spine. Age-related degenerative changes are present throughout. Soft Tissues: There is a left inguinal hernia containing a loop of small bowel. This appears to be t he site of transition with dilatation of the proximal small bowel and normal caliber distal small bow el. There is no bowel wall thickening. PELVIS: Bladder: Symmetric distention, no gross wall thickening. Reproductive Organs: Unremarkable as visualized. Lymph Nodes: Within normal limits. Bones: Within normal limits for the patient's age. IMPRESSION: 1. Findings of a small-bowel obstruction with a transition noted secondary to a loop of bowel within the patient's left inguinal hernia. 2. Ill-defined ground-glass opacities in the right upper, left lower and right lower lobes. Infectio us/inflammatory process should be considered. 3. Fluid in the distal esophagus. This may raise a concern for aspiration pneumonia. 4. Findings were discussed with Antonieta oCte at 11:14 a.m. on 06/11/2023. RADIATION DOSE DELIVERED: 2276.65 mGy.cm Total DLP 2276.65 mGy.cm Total DLP DATA REPOSITORY: All CT scans at this facility are submitted to the National Radiology Data Registry (NRDR) Dose Index Registry (DIR) with the [employer] (ACR). RADIATION OPTIMIZATION: All CT scans at this facility use at least one of these dose optimization te chniques: automated exposure control; mA and/or kV adjustment per patient size (includes targeted exa ms where dose is matched to clinical indication); or iterative reconstruction.
--- NOTE | 2023-06-11 08:57 | ED.GENADUL_ITS ---
Discharge Plan Disposition Patient Disposition: Admit to [facility] Condition: Poor Discharge Details Clinical Impression: Comfort measures only status, Bowel obstruction, Hypotension Admit Date/Time: 06/11/23 14:14 Admit Provider: Praveen Escalante Attending Provider: Praveen Escalante Primary Care Provider: Homer Nolan ED Provider: Antonieta Cote Medical Decision Making 82-year-old male with a past medical history of dementia associated with Parki nson's disease, Alzheimer's, osteoporosis, hypertension, BPH hyperlipidemia systolic murmur aortic stenosis presents with a unwitnessed fall which occurred this morning. reports that he fell coming out of the bathroom she was unable to get him up and her son was unable to get him up he became more confused after the fall. He does present with dark brown coffee-ground emesis noted he did vomit upon arrival twice. He is pale, hypotensive EMS reports on scene that his blood pressure was 50 systolic, he did get 200 cc normal saline prior to arrival which brought his blood pressure up to the 80s systolic. His O2 sat is 89% on room air. He does not normally wear oxygen. He is placed on 2 L nasal cannula, work-up ordered and CT head chest abdomen pelvis EKG. He does have a small abrasion noted to his right scalp, no other signs of trauma noted. He does have incontinent of feces. EKG was reviewed by Dr. Barajas and myself ER attending, there is artifact noted on the tracing, old EKG available for review. Work-up ordered including CBC CMP PT PTT serial troponins, type and screen CT head chest abdomen pelvis. Differential diagnosis includes but not limited to CVA, NC, GI bleed Blood pressure at this time is 85/71 heart rate is 84 respiratory 24, he has had received 4 mg of Zofran he continues to retch coffee-ground emesis which smells like feces, placed on a nonrebreather having a hard time getting a accurate reading for his O2 sat at this time is 92%. Rectal temp 99.3. He did not take any of his medications this morning. He does normally take 2.5 mg of midodrine 3 times a day. 1117: Spoke with Dr. Harrison radiologist who reports that patient has bilateral infiltrates in his lungs question for aspiration, he does have a left inguinal hernia and the transition point is at this left inguinal hernia with a small bowel obstruction. NG tube to low intermittent suction ordered, blood cultures x2 and Zosyn. Harman catheter placed by field staff manager, lactate is 5.3. 1118: Hospitalist paged. 1147: RT paged to the bedside for high flow O2, patient is becoming more agitated milligram of Ativan IV ordered I did have long discussion with regarding plan of care we will attempt NG tube for the bowel obstruction, high flow oxygen and I did discuss possible vasopressors however we will hold off at this time. After high flow place will plan to repeat VBG. Discussed plan of care with Anusha who states that she would like to keep him comfortable she declined surgery at this time. He is DNR/DNI. At this time patient is not a surgical candidate. 1215: Spoke with Boris Will discuss comfort measures only versus pressors and antibiotics before decideing if patient needs an ICU bed or med Surg. Will call Boris back. 1246: Spoke with who reports that she would like to do the vasopressors norepinephrine at 5 mics ordered titrate to systolic blood pressure greater than 90. He is not responding at this time he is obtunded. He is on high flow O2, NG tube they have gotten over 3 L of dark brown return out of the NG tube. He is pale. 1254: Spoke with , she would like to make him comfort measures only. 1300: Spoke with Dr. Escalante and hospitalist team who reports that they believe that patient will pass away prior to him getting to the floor. I will evaluate for approximately 45 minutes and call him back if patient has not yet. 1305: Comfort measures ordered, will decrease the oxygen slowly take out the Harman will give morphine as needed for pain. is awaiting her cell phone to be charged to call the rest of her family. Patient at this time is obtunded is not responding. Last blood pressure documented was 60/30, O2 sat 60% on the high flow. Monitor was turned off. We will call the production control technologist. 1336: Morphine 4 mg orders as needed and lorazepam as needed orders informed by field staff manager that patient is becoming more restless. Patient's family son-in-law did call here they are on their way. 1357: High flow O2 removed, family at bedside. 1417: Spoke with Heat Treater Helper, Eve, Hospitalist team will accept patient for admission for comfort measures only. Will plan to transport patient to floor upon bed assignment. 1514: Patient was given 4 mg of morphine by field staff manager heart rate is 84 respiration rate is 28. Oral care performed by field staff manager. Medical Records Medical records reviewed: Yes I reviewed the patient's medical records. Medical records narrative: Here on May 22 and admitted for weakness dementia after fall. Lab Data Lab results reviewed: Yes I reviewed the patient's lab results. Labs: 06/11/23 11:14 Blood Blood Culture - Pending 06/11/23 11:14 Blood Blood Culture - Pending Laboratory Tests Range/Units 06/11/23 06/11/23 06/11/23 09:03 09:03 09:03 WBC (4.4-10.8) 10^3/uL 17.13 H RBC (4.36-5.78) 10^6/uL 3.90 L Hgb (13.5-17.5) g/dL 12.7 L Hct (40.0-50.0) % 39.1 L MCV (80-95) fL 100 H MCH (27.0-33.0) pg 32.6 MCHC (32.0-36.0) % 32.5 RDW (11.8-14.1) % 12.7 Plt Count (130-400) 10^3/uL 230 MPV (8.0-11.0) fL 10.5 Immature Gran % 0.0 Neutrophils % 17.0 Band Neutrophils % 3 Lymphocytes % 77.0 Atypical Lymphs % 0 Monocytes % 3.0 Eosinophils % 0.0 Basophils % 0.0 Nucleated RBC % (0.0-0.3) % 0.0 Absolute Neutrophils (1.2-6.7) 10^3/uL 3.43 Absolute Lymphocytes (1.2-3.4) 10^3/uL 13.19 H Absolute Monocytes (0.1-0.8) 10^3/uL 0.51 Absolute Eosinophils (0.0-0.7) 10^3/uL 0.00 Absolute Basophils (0.0-0.2) 10^3/uL 0.00 PT (9.3-11.0) sec 11.6 H INR (0.9-1.1) 1.1 APTT (21.5-31.9) sec 26.2 VBG pH (7.31-7.41) VBG pCO2 (41-51) mmHg VBG pO2 mmHg VBG HCO3 (23-28) mmol/L VBG Total CO2 (24-29) mmol/L VBG O2 Saturation % VBG Base Excess (-2-3) mmol/L VBG Lactate (0.6-1.4) mmol/L Sodium (136-145) mmol/L 141 Potassium (3.5-5.1) mmol/L 4.6 Chloride (98-107) mmol/L 103 Carbon Dioxide (21.0-32.0) mmol/L 25.3 Anion Gap (3-11) mmol/L 12.7 H BUN (7-18) mg/dL 53 H Creatinine (0.70-1.30) mg/dL 2.7 H Est GFR (CKD-EPI 2020) (mL/min/1.73m2) 22.53 Glucose (74-106) mg/dL 235 H Calcium (8.5-10.1) mg/dL 9.6 Magnesium (1.8-2.4) mg/dL 2.4 Total Bilirubin (0.2-1.0) mg/dL 1.8 H AST (15-37) U/L 20 ALT (16-63) U/L 7 L Alkaline Phosphatase (46-116) U/L 63 Troponin I (<or=60) ng/L < 50 Total Protein (6.4-8.2) g/dL 6.3 L Albumin (3.4-5.0) g/dL 3.7 Add-On Test Request Patient ABO/Rh Antibody Screen Range/Units 06/11/23 06/11/23 06/11/23 09:03 10:45 10:45 WBC (4.4-10.8) 10^3/uL RBC (4.36-5.78) 10^6/uL Hgb (13.5-17.5) g/dL Hct (40.0-50.0) % MCV (80-95) fL MCH (27.0-33.0) pg MCHC (32.0-36.0) % RDW (11.8-14.1) % Plt Count (130-400) 10^3/uL MPV (8.0-11.0) fL Immature Gran % Neutrophils % Band Neutrophils % Lymphocytes % Atypical Lymphs % Monocytes % Eosinophils % Basophils % Nucleated RBC % (0.0-0.3) % Absolute Neutrophils (1.2-6.7) 10^3/uL Absolute Lymphocytes (1.2-3.4) 10^3/uL Absolute Monocytes (0.1-0.8) 10^3/uL Absolute Eosinophils (0.0-0.7) 10^3/uL Absolute Basophils (0.0-0.2) 10^3/uL PT (9.3-11.0) sec INR (0.9-1.1) APTT (21.5-31.9) sec VBG pH (7.31-7.41) 7.25 L VBG pCO2 (41-51) mmHg 56 H VBG pO2 mmHg 28 VBG HCO3 (23-28) mmol/L 25 VBG Total CO2 (24-29) mmol/L 23 L VBG O2 Saturation % 39 VBG Base Excess (-2-3) mmol/L -3 L VBG Lactate (0.6-1.4) mmol/L Sodium (136-145) mmol/L Potassium (3.5-5.1) mmol/L Chloride (98-107) mmol/L Carbon Dioxide (21.0-32.0) mmol/L Anion Gap (3-11) mmol/L BUN (7-18) mg/dL Creatinine (0.70-1.30) mg/dL Est GFR (CKD-EPI 2020) (mL/min/1.73m2) Glucose (74-106) mg/dL Calcium (8.5-10.1) mg/dL Magnesium (1.8-2.4) mg/dL Total Bilirubin (0.2-1.0) mg/dL AST (15-37) U/L ALT (16-63) U/L Alkaline Phosphatase (46-116) U/L Troponin I (<or=60) ng/L Total Protein (6.4-8.2) g/dL Albumin (3.4-5.0) g/dL Add-On Test Request DONE Patient ABO/Rh A Positive Antibody Screen NEGATIVE Range/Units 06/11/23 10:45 WBC (4.4-10.8) 10^3/uL RBC (4.36-5.78) 10^6/uL Hgb (13.5-17.5) g/dL Hct (40.0-50.0) % MCV (80-95) fL MCH (27.0-33.0) pg MCHC (32.0-36.0) % RDW (11.8-14.1) % Plt Count (130-400) 10^3/uL MPV (8.0-11.0) fL Immature Gran % Neutrophils % Band Neutrophils % Lymphocytes % Atypical Lymphs % Monocytes % Eosinophils % Basophils % Nucleated RBC % (0.0-0.3) % Absolute Neutrophils (1.2-6.7) 10^3/uL Absolute Lymphocytes (1.2-3.4) 10^3/uL Absolute Monocytes (0.1-0.8) 10^3/uL Absolute Eosinophils (0.0-0.7) 10^3/uL Absolute Basophils (0.0-0.2) 10^3/uL PT (9.3-11.0) sec INR (0.9-1.1) APTT (21.5-31.9) sec VBG pH (7.31-7.41) VBG pCO2 (41-51) mmHg VBG pO2 mmHg VBG HCO3 (23-28) mmol/L VBG Total CO2 (24-29) mmol/L VBG O2 Saturation % VBG Base Excess (-2-3) mmol/L VBG Lactate (0.6-1.4) mmol/L 5.3 H* Sodium (136-145) mmol/L Potassium (3.5-5.1) mmol/L Chloride (98-107) mmol/L Carbon Dioxide (21.0-32.0) mmol/L Anion Gap (3-11) mmol/L BUN (7-18) mg/dL Creatinine (0.70-1.30) mg/dL Est GFR (CKD-EPI 2020) (mL/min/1.73m2) Glucose (74-106) mg/dL Calcium (8.5-10.1) mg/dL Magnesium (1.8-2.4) mg/dL Total Bilirubin (0.2-1.0) mg/dL AST (15-37) U/L ALT (16-63) U/L Alkaline Phosphatase (46-116) U/L Troponin I (<or=60) ng/L Total Protein (6.4-8.2) g/dL Albumin (3.4-5.0) g/dL Add-On Test Request Patient ABO/Rh Antibody Screen HPI General Mode of arrival: EMS . Date/Time Provider Initiated Documentation: 06/11/23 08:46 . Limitations to Documentation: altered mental status . Information obtained by: patient, family (), EMS, RN notes reviewed and old records reviewed . HPI Narrative: 82-year-old male with a past medical history of dementia associated with Parkinson's disease, Alzheimer's, osteoporosis, hypertension, BPH hyperlipidemia systolic murmur aortic stenosis presents with a unwitnessed fall which occurred this morning. reports that he fell coming out of the bathroom she was unable to get him up and her son was unable to get him up he became more confused after the fall. He does present with dark brown coffee-ground emesis noted he did vomit upon arrival twice. He is pale, hypotensive EMS reports on scene that his blood pressure was 50 systolic, he did get 200 cc normal saline prior to arrival which brought his blood pressure up to the 80s systolic. His O2 sat is 89% on room air. He does not normally wear oxygen. He is placed on 2 L nasal cannula, work-up ordered and CT head chest abdomen pelvis EKG. He does have a small abrasion noted to his right scalp, no other signs of trauma noted. He does have incontinent of feces. Related Data Home Medications Medication Instructions Recorded Confirmed aspirin 81 mg tablet,delayed 81 mg PO DAILY 07/06/21 06/11/23 release (Adult Aspirin Regimen) multivitamin 1 tab PO DAILY 07/06/21 06/11/23 saw palmetto 450 mg capsule 450 mg PO BID 01/03/22 06/11/23 calcium citrate malate 250 2 tab PO DAILY 05/14/22 06/11/23 mg-vitamin D3 2.5 mcg (100 unit) tablet carbidopa 25 mg-levodopa 250 mg 1 tab PO TID #270 tabs 11/19/22 06/11/23 tablet memantine 10 mg tablet 10 mg PO BID #180 tabs 11/19/22 06/11/23 midodrine 2.5 mg tablet 2.5 mg PO TID #90 tabs 05/23/23 06/11/23 alendronate 70 mg tablet 70 mg PO QWEEK 06/11/23 06/11/23 ramipril 2.5 mg capsule 2.5 mg PO DAILY 06/11/23 06/11/23 Previous Rx's Medication Instructions Recorded carbidopa 25 mg-levodopa 250 mg 1 tab PO TID #270 tabs 11/19/22 tablet memantine 10 mg tablet 10 mg PO BID #180 tabs 11/19/22 midodrine 2.5 mg tablet 2.5 mg PO TID #90 tabs 05/23/23 Allergies Allergy/AdvReac Type Severity Reaction Status Date / Time No Known Allergies Allergy Verified 06/11/23 09:12 General Stated Complaint: [id number] JAYA: 2 Review of Systems Narrative: History limited by patient's mental status history obtained by EMS and , patient did state upon arrival that he had been vomiting x 3 days. All systems reviewed & are unremarkable except as noted in HPI and below Constitutional Constitutional: Reports frequent falls and Reports weakness ENT Ears, Nose, Mouth, and Throat: Reports disequilibrium Cardiovascular Cardiovascular: Reports as per HPI and Reports syncope Gastrointestinal Gastrointestinal: Reports nausea and Reports vomiting Neurologic Neurologic: Reports confusion, Reports syncope, Reports frequent falls, Reports disequilibrium and Reports weakness Psychiatric Psychiatric: Reports confusion PFS All Active Problems (Updated 06/11/23 @ 14:17 by Antonieta Cote NP) Comfort measures only status (Acute) Bowel obstruction (Acute) Hypotension (Acute) Dementia associated with Parkinson's disease (Acute) Advanced care planning/counseling discussion (Acute) Palliative care encounter (Acute) Autonomic dysfunction (Acute) Parkinson disease (Chronic) Dementia (Chronic) Hallucinations (Acute) Alzheimer disease (Chronic) Knee pain, right (Acute) Systolic murmur (Acute) Osteoporosis (Chronic) Parkinsons disease (Chronic) Aortic stenosis (Chronic) Painful total knee replacement, right (Acute) Incarcerated right inguinal hernia (Acute) BPH (benign prostatic hyperplasia) (Chronic) HTN (hypertension) (Chronic) Elevated cholesterol (Chronic) Surgical History History of lumbar laminectomy multiple History of total right knee replacement (TKR) (~2019) Hx of hand surgery left S/P right inguinal hernia repair Status post total knee replacement, left Social History Smoking/Tobacco Use Status: Never Smoking risk assessment performed?: Yes Alcohol Intake: current Alcohol Intake frequency: 0-2 drinks per day Alcohol type: wine Drug use: Never Substance use type: does not use Household members: spouse Housing: house Number of Children: 2 Education Level: college 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 Appears stated age. Normal body habitus. Patient does have a history of Parkinson's, dementia. Patient normally is able to get up to get self dressed and perform ADLs. Head: Normocephalic, no trauma. Eyes: Pupils does have a tear shaped right pupil which is from previous cataract surgery, ENT: Bilateral TM's WNL, External ear normal to inspection, no mastoid TTP, swelling, or erythema, Nasal turbinates WNL, no nasal discharge. Patient does have dry mucous membranes, he does have coffee-ground brown emesis and roll on his mouth. Chest: RRR, Normal S1, S2, distal pulses intact. Resp: Lungs diminished to auscultation bilaterally, Abdomen: Soft, non-distended, Musculoskeletal: Unable to assess gait, generalized weakness Skin: No suspicious rashes or lesions. Prolonged capillary refill cool extremities. Neurologic: No facial droop upon initial presentation patient able to answer yes or no questions and then has garbled speech this is reported to be patient's baseline per . Alert and oriented x 1. Motor: No deficits noted. Hematologic/Lymphatic: No ecchymosis, no lymphadenopathy. Course Vital Signs Vital signs: Vital Signs Temperature 37.1 C 06/11/23 08:46 Pulse 87 06/11/23 08:46 Respiratory Rate 17 06/11/23 08:46 Blood Pressure 84/54 L 06/11/23 08:46 Pulse Oximetry 89 L 06/11/23 08:46 Temperature 37.1 C 06/11/23 08:46 Temperature Source Tympanic 06/11/23 08:46 Pulse 87 06/11/23 08:46 Respiratory Rate 17 06/11/23 08:46 Blood Pressure 84/54 L 06/11/23 08:46 Blood Pressure Position Supine 06/11/23 08:46 Pulse Oximetry 89 L 06/11/23 08:46 Oxygen Delivery Method Room Air 06/11/23 08:46 Oxygen Flow Rate 0 06/11/23 08:46 Pain Level 0 06/11/23 08:46 Critical Care Time Critical Care Time Critical Care Time: Yes Total Critical Care Time: 60 Attestation: I spent greater than 35 minutes addressing this patient's acute life threatening illness. This time was spent engaged in actions directly related to the patient's care. Failure to initiate these interventions would have likely resulted in clinically significant or life threatening deterioration in the patients condition.
[2023-06-11] MEDS: Normal Saline 1,000 ML 1000 ML IV (09:07)
[2023-06-11] MEDS: Ondansetron 4 MG/2 ML VIAL IVP (09:27)
--- NOTE | 2023-06-11 09:30 | RT.EKG_ITS ---
APPROVED REPORT Exam: Resting ECG Reason for Exam: Repeat Patient Location: E HR:94 bpm ECG Measurements Heart Rate 94 AXIS PA 251 P 59 QRSd 112 QRS 71 QT 345 T -34 QTc 431 Conclusion Sinus rhythm...normal P axis, V-rate 60- 99 Prolonged PA interval...PA >215, V-rate 91-120 Consider anterolateral infarct...Q >30mS, I aVL V3-V6,I,aVL
[2023-06-11 09:36] LABS: HCT 39.1 % (40.0-50.0); HGB 12.7 g/dL (13.5-17.5); MCH 32.6 pg (27.0-33.0); MCHC 32.5 % (32.0-36.0); MCV 100 fL (80-95); MPV 10.5 fL (8.0-11.0); Platelet Count 230 10^3/uL (130-400); RDW 12.7 % (11.8-14.1); RDW-SD 46.5 fL; WBC 17.13 10^3/uL (4.4-10.8)
[2023-06-11 09:44] LABS: INR 1.1 (0.9-1.1); PTT Activated 26.2 sec (21.5-31.9); Prothrombin Time 11.6 sec (9.3-11.0)
[2023-06-11 09:50] LABS: ALT 7 U/L (16-63); AST 20 U/L (15-37); Albumin 3.7 g/dL (3.4-5.0); Alkaline Phosphatase 63 U/L (46-116); Anion Gap 12.7 mmol/L (3-11); BUN 53 mg/dL (7-18); Bilirubin, Total 1.8 mg/dL (0.2-1.0); CO2 25.3 mmol/L (21.0-32.0); CREATININE 2.7 mg/dL (0.70-1.30); Calcium 9.6 mg/dL (8.5-10.1); Chloride 103 mmol/L (98-107); Estimated GFR 22.53 (mL/min/1.73m2); Glucose 235 mg/dL (74-106); Magnesium 2.4 mg/dL (1.8-2.4); Potassium 4.6 mmol/L (3.5-5.1); Sodium 141 mmol/L (136-145); Total Protein 6.3 g/dL (6.4-8.2); Troponin I < 50 ng/L (<or=60)
[2023-06-11 10:03] LABS: Absolute Lymphocyte Count 13.19 10^3/uL (1.2-3.4); Absolute Monocyte Count 0.51 10^3/uL (0.1-0.8); Absolute Neutrophil Count 3.43 10^3/uL (1.2-6.7); Atypical Lymphocytes % 0; Bands % 3
[2023-06-11 10:04] LABS: Diff Comment Manual Differential
[2023-06-11] MEDS: Normal Saline 500 ML IV (10:10)
[2023-06-11 10:47] LABS: Lab Add On Test DONE
[2023-06-11 10:50] LABS: BE (Venous) -3 mmol/L (-2-3); HCO3 (Venous) 25 mmol/L (23-28); O2 Sat (Venous) 39 %; TCO2 (Venous) 23 mmol/L (24-29); pCO2 (Venous) 56 mmHg (41-51); pH (Venous) 7.25 (7.31-7.41); pO2 (Venous) 28 mmHg
[2023-06-11 10:58] LABS: Lactate 5.3 mmol/L (0.6-1.4)
[2023-06-11] MEDS: Lidocaine 2% Jelly 6 ML SYR (11:06)
[2023-06-11 11:28] LABS: Bilirubin Small (Negative); Blood Trace-intact (Negative); Clarity Clear (Clear); Glucose Negative (Negative); Ketones 15 mg/dL (Negative); Leukocyte Esterase Negative (Negative); Nitrite Negative (Negative); Specific Gravity >= 1.030 (1.005-1.025); Urobilinogen 0.2 mg/dL (Up to 0.2); pH 5.5 (5-8)
[2023-06-11 11:35] LABS: NT-proBNP 877 pg/mL (<300)
[2023-06-11 11:39] LABS: Epithelial Cells Few HPF (Negative); WBC 0-2 HPF (0-5)
[2023-06-11 11:40] LABS: Bacteria Moderate HPF (Negative); C & S Indicated? No; Casts Negative LPF (Negative); Crystals Negative HPF (Negative); Mucus Trace (Negative)
[2023-06-11] MEDS: PIPERACILLIN/TAZO 3.375 GM in Normal Saline 50 ML IVPB (11:42)
[2023-06-11] MEDS: LORazepam 2 MG/ML VIAL 1 MG IVP (11:56)
[2023-06-11 12:33] LABS: COVID-19 PCR Negative (Negative); Influenza A PCR Negative (Negative); Influenza B PCR Negative (Negative); RSV PCR Negative (Negative)
[2023-06-11 12:43] LABS: Source Nasopharynx
[2023-06-11] MEDS: LORazepam 2 MG/ML VIAL 0.5 MG IVP (13:37)
--- NOTE | 2023-06-11 14:15 | HPE_ITS ---
Date of service: 06/11/23 Time of Service: 14:16 Assessment and Plan Assessment and plan (1) Bowel obstruction: Status: Acute History of Present Illness History of Present Illness Chief Complaint: small bowel obstruction Narrative: Patient presented to the emergency department by EMS after found to have fallen at home and not at his baseline. Noted to be vomiting fecal smelling matter. His work-up in the emergency department did show a small bowel obstruction. He was not a surgical candidate and after much discussion with the family the decision to make him comfort measures was made. He was unstable in the emergency department with a systolic blood pressure in the 50s and a heart rate in the 1 teens. He was provided [facility] for symptom management and morphine and soon became obtunded. His case was discussed with hospitalist services and he will be admitted to the medical surgical unit for end-of-life care. Please see note as patient shortly after arriving to the unit prior to my examination. Review of Systems All systems reviewed & are unremarkable except as noted in HPI and below PFSH All Active Problems (Updated 06/11/23 @ 14:17 by Antonieta Cote NP) Comfort measures only status (Acute) Bowel obstruction (Acute) Hypotension (Acute) Dementia associated with Parkinson's disease (Acute) Advanced care planning/counseling discussion (Acute) Palliative care encounter (Acute) Autonomic dysfunction (Acute) Parkinson disease (Chronic) Dementia (Chronic) Hallucinations (Acute) Alzheimer disease (Chronic) Knee pain, right (Acute) Systolic murmur (Acute) Osteoporosis (Chronic) Parkinsons disease (Chronic) Aortic stenosis (Chronic) Painful total knee replacement, right (Acute) Incarcerated right inguinal hernia (Acute) BPH (benign prostatic hyperplasia) (Chronic) HTN (hypertension) (Chronic) Elevated cholesterol (Chronic) Surgical History History of lumbar laminectomy multiple History of total right knee replacement (TKR) (~2019) Hx of hand surgery left S/P right inguinal hernia repair Status post total knee replacement, left Social History Smoking/Tobacco Use Status: Never Smoking risk assessment performed?: Yes Alcohol Intake: current Alcohol Intake frequency: 0-2 drinks per day Alcohol type: wine Drug use: Never Substance use type: does not use Household members: spouse Housing: house Number of Children: 2 Education Level: college 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 What is your relationship status?: Panel score (0-1 are the most socially isolated patients): 1 Do you feel safe at home: Yes Do you feel safe in your relationship?: Yes Additional Social history: unable to assess privately Meds Allergies and Home Medications Allergies Allergy/AdvReac Type Severity Reaction Status Date / Time No Known Allergies Allergy Verified 06/11/23 09:12 Home Medications Medication Instructions Recorded Confirmed Type aspirin 81 mg tablet,delayed 81 mg PO DAILY 07/06/21 06/11/23 History release (Adult Aspirin Regimen) multivitamin 1 tab PO DAILY 07/06/21 06/11/23 History saw palmetto 450 mg capsule 450 mg PO BID 01/03/22 06/11/23 History calcium citrate malate 250 2 tab PO DAILY 05/14/22 06/11/23 History mg-vitamin D3 2.5 mcg (100 unit) tablet carbidopa 25 mg-levodopa 250 mg 1 tab PO TID #270 tabs 11/19/22 06/11/23 Rx tablet memantine 10 mg tablet 10 mg PO BID #180 tabs 11/19/22 06/11/23 Rx midodrine 2.5 mg tablet 2.5 mg PO TID #90 tabs 05/23/23 06/11/23 Rx alendronate 70 mg tablet 70 mg PO QWEEK 06/11/23 06/11/23 History ramipril 2.5 mg capsule 2.5 mg PO DAILY 06/11/23 06/11/23 History Results Labs 06/11/23 09:03 06/11/23 09:03 Labs: Laboratory Results - last 24 hr 06/11/23 06/11/23 06/11/23 09:03 09:03 09:03 WBC 17.13 H RBC 3.90 L Hgb 12.7 L Hct 39.1 L MCV 100 H MCH 32.6 MCHC 32.5 RDW 12.7 Plt Count 230 MPV 10.5 Immature Gran % 0.0 Neutrophils % 17.0 Band Neutrophils % 3 Lymphocytes % 77.0 Atypical Lymphs % 0 Monocytes % 3.0 Eosinophils % 0.0 Basophils % 0.0 Nucleated RBC % 0.0 Absolute Neutrophils 3.43 Absolute Lymphocytes 13.19 H Absolute Monocytes 0.51 Absolute Eosinophils 0.00 Absolute Basophils 0.00 PT 11.6 H INR 1.1 APTT 26.2 VBG pH VBG pCO2 VBG pO2 VBG HCO3 VBG Total CO2 VBG O2 Saturation VBG Base Excess VBG Lactate Sodium 141 Potassium 4.6 Chloride 103 Carbon Dioxide 25.3 Anion Gap 12.7 H BUN 53 H Creatinine 2.7 H Est GFR (CKD-EPI 2020) 22.53 Glucose 235 H Calcium 9.6 Magnesium 2.4 Total Bilirubin 1.8 H AST 20 ALT 7 L Alkaline Phosphatase 63 Troponin I < 50 NT-Pro-B Natriuret Pep Total Protein 6.3 L Albumin 3.7 Urine Color Urine Clarity Urine pH Ur Specific Mcclellan Urine Protein Urine Ketones Urine Blood Urine Nitrite Urine Bilirubin Urine Urobilinogen Ur Leukocyte Esterase Urine RBC Urine WBC Ur Epithelial Cells Urine Crystals Urine Bacteria Urine Casts Urine Mucus Ur Culture Indicated? Urine Glucose COVID-19 Source SARS-CoV-2 (PCR) Influenza Type A (PCR) Influenza Type B (PCR) RSV (PCR) Add-On Test Request Patient ABO/Rh Antibody Screen 06/11/23 06/11/23 06/11/23 09:03 10:45 10:45 WBC RBC Hgb Hct MCV MCH MCHC RDW Plt Count MPV Immature Gran % Neutrophils % Band Neutrophils % Lymphocytes % Atypical Lymphs % Monocytes % Eosinophils % Basophils % Nucleated RBC % Absolute Neutrophils Absolute Lymphocytes Absolute Monocytes Absolute Eosinophils Absolute Basophils PT INR APTT VBG pH 7.25 L VBG pCO2 56 H VBG pO2 28 VBG HCO3 25 VBG Total CO2 23 L VBG O2 Saturation 39 VBG Base Excess -3 L VBG Lactate Sodium Potassium Chloride Carbon Dioxide Anion Gap BUN Creatinine Est GFR (CKD-EPI 2020) Glucose Calcium Magnesium Total Bilirubin AST ALT Alkaline Phosphatase Troponin I NT-Pro-B Natriuret Pep Total Protein Albumin Urine Color Urine Clarity Urine pH Ur Specific Mcclellan Urine Protein Urine Ketones Urine Blood Urine Nitrite Urine Bilirubin Urine Urobilinogen Ur Leukocyte Esterase Urine RBC Urine WBC Ur Epithelial Cells Urine Crystals Urine Bacteria Urine Casts Urine Mucus Ur Culture Indicated? Urine Glucose COVID-19 Source SARS-CoV-2 (PCR) Influenza Type A (PCR) Influenza Type B (PCR) RSV (PCR) Add-On Test Request DONE Patient ABO/Rh A Positive Antibody Screen NEGATIVE 06/11/23 06/11/23 06/11/23 10:45 10:45 11:22 WBC RBC Hgb Hct MCV MCH MCHC RDW Plt Count MPV Immature Gran % Neutrophils % Band Neutrophils % Lymphocytes % Atypical Lymphs % Monocytes % Eosinophils % Basophils % Nucleated RBC % Absolute Neutrophils Absolute Lymphocytes Absolute Monocytes Absolute Eosinophils Absolute Basophils PT INR APTT VBG pH VBG pCO2 VBG pO2 VBG HCO3 VBG Total CO2 VBG O2 Saturation VBG Base Excess VBG Lactate 5.3 H* Sodium Potassium Chloride Carbon Dioxide Anion Gap BUN Creatinine Est GFR (CKD-EPI 2020) Glucose Calcium Magnesium Total Bilirubin AST ALT Alkaline Phosphatase Troponin I NT-Pro-B Natriuret Pep 877 H Total Protein Albumin Urine Color Yellow Urine Clarity Clear Urine pH 5.5 Ur Specific Mcclellan >= 1.030 H Urine Protein 100 H Urine Ketones 15 H Urine Blood Trace-intact H Urine Nitrite Negative Urine Bilirubin Small H Urine Urobilinogen 0.2 Ur Leukocyte Esterase Negative Urine RBC 3-5 H Urine WBC 0-2 Ur Epithelial Cells Few Urine Crystals Negative Urine Bacteria Moderate Urine Casts Negative Urine Mucus Trace Ur Culture Indicated? No Urine Glucose Negative COVID-19 Source SARS-CoV-2 (PCR) Influenza Type A (PCR) Influenza Type B (PCR) RSV (PCR) Add-On Test Request Patient ABO/Rh Antibody Screen 06/11/23 06/11/23 11:48 11:50 WBC RBC Hgb Hct MCV MCH MCHC RDW Plt Count MPV Immature Gran % Neutrophils % Band Neutrophils % Lymphocytes % Atypical Lymphs % Monocytes % Eosinophils % Basophils % Nucleated RBC % Absolute Neutrophils Absolute Lymphocytes Absolute Monocytes Absolute Eosinophils Absolute Basophils PT INR APTT VBG pH VBG pCO2 VBG pO2 VBG HCO3 VBG Total CO2 VBG O2 Saturation VBG Base Excess VBG Lactate Sodium Potassium Chloride Carbon Dioxide Anion Gap BUN Creatinine Est GFR (CKD-EPI 2020) Glucose Calcium Magnesium Total Bilirubin AST ALT Alkaline Phosphatase Troponin I Cancelled NT-Pro-B Natriuret Pep Total Protein Albumin Urine Color Urine Clarity Urine pH Ur Specific Mcclellan Urine Protein Urine Ketones Urine Blood Urine Nitrite Urine Bilirubin Urine Urobilinogen Ur Leukocyte Esterase Urine RBC Urine WBC Ur Epithelial Cells Urine Crystals Urine Bacteria Urine Casts Urine Mucus Ur Culture Indicated? Urine Glucose COVID-19 Source Nasopharynx SARS-CoV-2 (PCR) Negative Influenza Type A (PCR) Negative Influenza Type B (PCR) Negative RSV (PCR) Negative Add-On Test Request Patient ABO/Rh Antibody Screen Last Vital Signs Temp 37.1 C 06/11/23 08:46 Pulse 102 H 06/11/23 12:51 Resp 33 H 06/11/23 12:51 BP 57/37 L 06/11/23 12:51 Pulse Ox 94 06/11/23 09:48 Time Spent Time spent with Patient: <40 minutes Time was spent: preparing to see the patient(eg.review tests) and referring, communicating with other health customer care voice consultant
[2023-06-11] MEDS: MORPHine 4 MG/ML SYR IVP (14:50)
--- NOTE | 2023-06-11 17:27 | EXPE_ITS ---
Date of service: 06/11/23 Time of Service: 16:32 Discharge Plan Disposition Patient Disposition: Condition: Poor Discharge Details Reason For Visit: bowel obstruction Admit Date/Time: 06/11/23 14:14 Admit Provider: Praveen Escalante Attending Provider: Praveen Escalante Primary Care Provider: Homer Nolan Hospital Course Hospital Course: This is an 82-year-old gentleman with advanced dementia with Parkinson's disease who presented to the emergency department by EMS after found to have fallen at home and not at his baseline.? Noted to be vomiting fecal smelling matter.? His work-up in the emergency department did show a small bowel obstruction.? His case was discussed with general surgery and after much discussion with the family the decision to make him comfort measures was made.? He was unstable in the emergency department with a systolic blood pressure in the 50s and a heart rate in the 1 teens.? He was provided Ativan for symptom management and morphine and soon became obtunded.? His case was discussed with hospitalist services and he was admitted to the medical surgical unit for end-of-life care. He shortly after arriving to the floor with family at bedside. discussed with DR Escalante Home Meds and New Rx's Prescriptions: No Action carbidopa-levodopa 25-250 mg tablet 1 tab PO TID Qty: 270 3RF Rx Instructions: Take at 8am, 1pm, and 6pm memantine 10 mg tablet 10 mg PO BID Qty: 180 3RF saw palmetto 450 mg capsule 450 mg PO BID Rx Instructions: give with food (meal/snack) aspirin [Adult Aspirin Regimen] 81 mg tablet,delayed release (DR/EC) 81 mg PO DAILY Patient Comments: Unsure dose multivitamin Tablet 1 tab PO DAILY calcium citrate malate-vit D3 250 mg-2.5 mcg (100 unit) tablet 2 tab PO DAILY midodrine 2.5 mg Tablet 2.5 mg PO TID Qty: 90 0RF alendronate 70 mg tablet 70 mg PO QWEEK Patient Comments: TAKE 1 TABLET BY MOUTH EVERY WEEK ramipril 2.5 mg capsule 2.5 mg PO DAILY Discharge Sum: Prov Provider Consults: 06/11/23 13:02 Claims Supervisor Consult [CONS] Stat Consultation Status:: Follow-up needed Clarification:: One time opinion Reason for consult:: Dying patient, comfort measures only Discharge Sum: Diag Contributing Factors (1) Bowel obstruction:
== END 2023-06-11 16:32 | disposition expired | DRG 389 ==
LOC: ER 14:17 → MS 15:23
PROVIDERS: Emergency Medicine; Admitting Provider Internal Medicine; Emergency Provider Registered Nurse Emergency; PCP Physician Assistant; Visit Provider Internal Medicine
DX: K56.609 Unspecified intestinal obstruction, unspecified as to partial versus complete obstruction (principal); T84.84XA Pain due to internal orthopedic prosthetic devices, implants and grafts, initial encounter; W19.XXXA Unspecified fall, initial encounter; Z51.5 Encounter for palliative care; Z66 Do not resuscitate; I95.9 Hypotension, unspecified; G20 Parkinson's disease; F02.80 Dementia in other diseases classified elsewhere, unspecified severity, without behavioral disturbance, psychotic disturbance, mood disturbance, and anxiety; G30.9 Alzheimer's disease, unspecified; M81.0 Age-related osteoporosis without current pathological fracture; R01.1 Cardiac murmur, unspecified; I35.0 Nonrheumatic aortic (valve) stenosis; N40.0 Benign prostatic hyperplasia without lower urinary tract symptoms; I10 Essential (primary) hypertension; E78.00 Pure hypercholesterolemia, unspecified; Z96.653 Presence of artificial knee joint, bilateral
CPT/HCPCS: 36415; 51702; 71250; 80053; 82805; 86850; 86900; 86901; 87040; 87637; 93005; 96361; 96365; 96375; 96376; 99291; 70450; 72125; 74176; 81003; 81015; 83605; 83735; 83880; 84484; 85025; 85610; 85730; 93010; 99222; J2060; J2270; J2405; J2543